=== PATIENT | female | born 1950 | race Caucasian/White ===

== ENCOUNTER 2021-03-19 11:46 | Outpatient (CLI) | payer MEDICARE, BC ==
[2021-03-19 14:35] LABS: #Basophils 0.1 10x3/uL (0.0-0.2); #Eosinphils 0.3 10x3/uL (0.0-0.5); #Monocytes 0.5 10x3/uL (0.0-1.1); #Neutrophils 4.6 10x3/uL (1.5-8.4); %Basophils 1.1 % (0.0-2.0); %Eosinophils 3.7 % (0.0-6.0); %Lymphocytes 24.9 % (18.0-47.0); %Monocytes 6.2 % (0.0-10.0); %Neutrophils 63.8 % (40.0-75.0); Hemoglobin 10.7 g/dL (12.0-15.5); Mean Corpuscular HGB CONC 33.2 g/dL (32.0-36.0); Mean Corpuscular Hemoglobin 29.6 pg (27.0-33.0); Mean Corpuscular Volume 89.2 fl (81.6-98.3); Mean Platelet Volume 10.4 fl (7.4-10.4); Platelet Count 261 10x3/uL (150-450); Red Blood Cell (RBC) Count 3.61 10x6/uL (3.90-5.03); White Blood Cell (WBC) Count 7.3 10x3/uL (3.5-10.5)
[2021-03-19 14:48] LABS: Anion Gap 17 mmol/L (10-20); BUN (Urea Nitrogen) 43 mg/dL (9.8-20.1); Calc. Creatinine Clearance 0 mL/min (70-130); Calcium 9.9 mg/dL (7.8-10.44); Carbon Dioxide 25 mmol/L (23-31); Chloride 102 mmol/L (98-107); Glucose 141 mg/dL (83-110); Potassium 4.8 mmol/L (3.5-5.1); Sodium 139 mmol/L (136-145)
[2021-03-20 01:00] LABS: SARS-CoV-2 PCR by NAA Not Detected (NotDetected)
== END 2021-03-19 11:47 | disposition home or self-care (01) ==
LOC: LABBT 11:46
PROVIDERS: ATTEND Specialist
DX: Z01.818 Encounter for other preprocedural examination (principal); E11.22 Type 2 diabetes mellitus with diabetic chronic kidney disease; I12.9 Hypertensive chronic kidney disease with stage 1 through stage 4 chronic kidney disease, or unspecified chronic kidney disease; N18.9 Chronic kidney disease, unspecified; Z79.4 Long term (current) use of insulin; Z20.822 Contact with and (suspected) exposure to COVID-19
CPT/HCPCS: 80048; 85025; U0003; U0005

== ENCOUNTER 2021-03-24 10:19 | Day surgery (SDC) | payer MEDICARE, BC ==
[2021-03-23 14:30] VITALS: BMI 29.6
[2021-03-24] MEDS ORDERED: Gabapentin 300 MG CAP ONE (10:49)
[2021-03-24] MEDS ORDERED: Levofloxacin 500 mg/D5W 100 ml Premix Bag ONE (10:49)
[2021-03-24] MEDS ORDERED: Ioversol 68 % 50 ML VIAL ONE (12:15)
[2021-03-24] MEDS ORDERED: Heparin 5,000 UNITS/ML VIAL ONE (12:15)
[2021-03-24] MEDS ORDERED: Bupivacaine PF 0.5% 30 ML VIAL ONE (12:15)
[2021-03-24] MEDS ORDERED: Bupivacaine 0.25% HCL 30 ML VIAL ONE ×2 (12:15→12:26)
[2021-03-24] MEDS ORDERED: Protamine Sulfate 50 MG/5 ML VIAL ONE (12:15)
[2021-03-24] MEDS ORDERED: EPINEPHrine 1 MG/ML AMP ONE (12:15)
[2021-03-24] MEDS ORDERED: Heparin 10,000 UNITS/ 10 ML VIAL ONE (12:15)
[2021-03-24] MEDS ORDERED: Fentanyl 100 MCG/2 ML VIAL ONE ×2 (12:24→14:36)
[2021-03-24] MEDS ORDERED: Lidocaine 2% PF 5 ML VIAL ONE (12:26)
[2021-03-24] MEDS ORDERED: Rocuronium Bromide 10 MG/ML (10ML VIAL) ONE (12:51)
[2021-03-24] MEDS ORDERED: Ondansetron PF 4 MG/2 ML Vial ONE (12:51)
[2021-03-24] MEDS ORDERED: ePHEDrine Sulfate 50 MG/10 ML VIAL ONE (12:51)
[2021-03-24] MEDS ORDERED: PROPOFOL 200 MG/20 ML VIAL ONE (12:51)
[2021-03-24] MEDS ORDERED: Glycopyrrolate 0.2 MG/ML 5 ML SYRINGE ONE (12:51)
[2021-03-24] MEDS ORDERED: Lidocaine 1% PF 5 ML VIAL ONE (12:51)
[2021-03-24] MEDS ORDERED: Lidocaine 1% w/Epinephrine 1:100K 20 ML VIAL ONE (12:58)
== END 2021-03-24 16:40 | disposition home or self-care (01) ==
LOC: SDC 10:19
PROVIDERS: ATTEND Specialist
PROC: 0WHG43Z Insertion of Infusion Device into Peritoneal Cavity, Percutaneous Endoscopic Approach (ICD-10-PCS; principal; 2021-03-24)
PROC: 031C0ZF Bypass Left Radial Artery to Lower Arm Vein, Open Approach (ICD-10-PCS; 2021-03-24)
DX: I13.11 Hypertensive heart and chronic kidney disease without heart failure, with stage 5 chronic kidney disease, or end stage renal disease (principal); E11.22 Type 2 diabetes mellitus with diabetic chronic kidney disease; N18.6 End stage renal disease; D63.1 Anemia in chronic kidney disease; B19.20 Unspecified viral hepatitis C without hepatic coma; Z87.891 Personal history of nicotine dependence; Z79.4 Long term (current) use of insulin; Z79.899 Other long term (current) drug therapy; Z88.1 Allergy status to other antibiotic agents
CPT/HCPCS: 36416; J0171; J1644; J1956; J2001; J2405; J2704; J2720; J3010; Q9967; S0020

== ENCOUNTER 2021-04-11 12:45 | Inpatient (IN) | payer MEDICARE, BC ==
[2021-04-11 17:32] VITALS: BMI 30.2
[2021-04-11] MEDS: Promethazine 25 MG TAB PO PRN (20:32)
[2021-04-11 21:17] LABS: SARS-CoV-2 PCR by NAA Not Detected (NotDetected)
[2021-04-11] MEDS ORDERED: Dextrose 50% Abboject 50 ML SYRINGE SLOW IVP PRN (21:21)
[2021-04-11] MEDS ORDERED: Dextrose 5% in Water 1,000 ML IV PRN (21:21)
[2021-04-11] MEDS: HumaLOG 300 UNITS/3 ML VIAL SC PRN (21:45)
[2021-04-11 21:46] LABS: #Lymphocytes 1.7 thou/uL (1.20-3.40); #Monocytes 1.2 thou/uL (0.11-0.59); #Neutrophils 12.7 thou/uL (1.40-6.50); %Basophils 0.3 % (0.0-1.0); %Eosinophils 0.2 % (0.0-10.0); %Lymphocytes 10.7 % (21.0-51.0); %Monocytes 7.5 % (0.0-10.0); %Neutrophils 81.3 % (42.0-75.0); Hemoglobin 9.9 g/dL (12.0-16.0); Mean Corpuscular HGB CONC 34.3 g/dL (32.0-36.0); Mean Corpuscular Hemoglobin 30.9 pg (27.0-31.0); Mean Platelet Volume 7.8 fL (7.4-10.4); Platelet Count 221 thou/uL (130-400); RBC Distribution Width 10.7 % (11.5-14.5); Red Blood Cell (RBC) Count 3.21 mill/uL (4.20-5.40); White Blood Cell (WBC) Count 15.6 thou/uL (4.8-10.8)
[2021-04-11] MEDS ORDERED: traMADol HCl 50 MG TAB PO PRN (21:56)
[2021-04-11 22:02] LABS: INR-International Normal Ratio 1.2; Prothrombin Time 15.4 sec (12.0-14.7)
[2021-04-11 22:03] LABS: PTT 33.7 sec (22.9-36.1)
[2021-04-11 22:05] LABS: Anion Gap 19 mmol/L (10-20); BUN (Urea Nitrogen) 48 mg/dL (9.8-20.1); Calc. Creatinine Clearance 20 mL/min (70-130); Calcium 9.2 mg/dL (7.8-10.44); Carbon Dioxide 18 mmol/L (23-31); Chloride 101 mmol/L (98-107); Glucose 230 mg/dL (83-110); Potassium 3.8 mmol/L (3.5-5.1); Sodium 134 mmol/L (136-145)
[2021-04-12] MEDS: Piperacillin/Tazobactam 2.25 GM in Sodium Chloride 0.9% 100 ML IVPB SCH ×2 (05:47→14:41)
[2021-04-12 06:19] LABS: #Basophils 0.1 thou/uL (0.0-0.2); #Lymphocytes 1.9 thou/uL (1.20-3.40); #Monocytes 1.1 thou/uL (0.11-0.59); #Neutrophils 10.3 thou/uL (1.40-6.50); %Basophils 0.5 % (0.0-1.0); %Eosinophils 0.3 % (0.0-10.0); %Monocytes 8.1 % (0.0-10.0); %Neutrophils 77.1 % (42.0-75.0); Hemoglobin 9.4 g/dL (12.0-16.0); Mean Corpuscular Hemoglobin 29.8 pg (27.0-31.0); Mean Corpuscular Volume 90.5 fL (78.0-98.0); Mean Platelet Volume 8.2 fL (7.4-10.4); Platelet Count 215 thou/uL (130-400); RBC Distribution Width 10.6 % (11.5-14.5); Red Blood Cell (RBC) Count 3.16 mill/uL (4.20-5.40); White Blood Cell (WBC) Count 13.3 thou/uL (4.8-10.8)
[2021-04-12 06:26] LABS: Hemoglobin A1c 6.8 % (4.0-6.0)
[2021-04-12 06:46] LABS: Anion Gap 15 mmol/L (10-20); BUN (Urea Nitrogen) 53 mg/dL (9.8-20.1); Calc. Creatinine Clearance 19 mL/min (70-130); Calcium 9.2 mg/dL (7.8-10.44); Carbon Dioxide 22 mmol/L (23-31); Chloride 102 mmol/L (98-107); Glucose 214 mg/dL (83-110); Potassium 3.5 mmol/L (3.5-5.1); Sodium 135 mmol/L (136-145)
[2021-04-12 09:38] LABS: Vancomycin, Random 11.1 ug/mL (See Comment)
[2021-04-12] MEDS ORDERED: EPOETIN ALFA-EPBX (ESRD) 10,000 UNIT/ML VIAL SC SCH (11:30)
[2021-04-12] MEDS ORDERED: Vancomycin HCl 1 GM in Premix Bag 1 BAG IVPB SCH (15:08)
[2021-04-12] MEDS ORDERED: HYDROcodone/Acetaminophen 5/325 mg Tablet PO PRN (16:03)
[2021-04-12] MEDS: Acetaminophen 325 MG TAB PO PRN (16:24)
[2021-04-12] MEDS ORDERED: Vancomycin HCl 750 MG in Sodium Chloride 0.9% 250 ML 250 ML IVPB SCH (17:00)
[2021-04-12] MEDS: Cefepime 1 GM in Sodium Chloride 0.9% 100 ML IVPB SCH (18:28)
[2021-04-12] MEDS: Carvedilol 6.25 MG TAB PO SCH (20:24)
[2021-04-12] MEDS: MAVYRET PO SCH (20:24)
[2021-04-12] MEDS: Atorvastatin Calcium 10 MG TAB PO SCH (20:24)
[2021-04-12] MEDS: HumaLOG 300 UNITS/3 ML VIAL SC PRN (20:25)
[2021-04-13] MEDS: HumaLOG 300 UNITS/3 ML VIAL SC PRN ×4 (00:03→16:46)
[2021-04-13] MEDS: Acetaminophen 325 MG TAB PO PRN ×2 (00:07→19:57)
[2021-04-13 05:59] LABS: Bacteria/HPF None Seen HPF (None Seen); Bilirubin Negative (Negative); Blood, Urine Negative (Negative); Clarity Clear (Clear); Glucose, Urine (Dipstick) 200 mg/dL (Negative); Ketone, Urine Negative (Negative); Leukocyte Negative Leu/uL (Negative); Nitrite Negative (Negative); Protein, Urine (Dipstick) 100 mg/dL (Neg-Trace); RBC/HPF 0-3 HPF (0-3); Specific Gravity, Urine 1.017 (1.002-1.036); Squamous Epithelial 0-3 HPF (0-3); Urobilinogen Normal mg/dL (Less than 2); WBC/HPF 0-3 HPF (0-3); pH, Urine 5.5 (5.0-9.0)
[2021-04-13 06:18] LABS: #Basophils 0.1 thou/uL (0.0-0.2); #Eosinphils 0.1 thou/uL (0.0-0.7); #Lymphocytes 1.5 thou/uL (1.20-3.40); #Neutrophils 8.8 thou/uL (1.40-6.50); %Basophils 0.5 % (0.0-1.0); %Eosinophils 0.9 % (0.0-10.0); %Monocytes 8.5 % (0.0-10.0); %Neutrophils 77.1 % (42.0-75.0); Hemoglobin 9.1 g/dL (12.0-16.0); Mean Corpuscular HGB CONC 34.6 g/dL (32.0-36.0); Mean Corpuscular Hemoglobin 31.2 pg (27.0-31.0); Mean Corpuscular Volume 90.2 fL (78.0-98.0); Mean Platelet Volume 8.1 fL (7.4-10.4); Platelet Count 206 thou/uL (130-400); RBC Distribution Width 10.6 % (11.5-14.5); White Blood Cell (WBC) Count 11.4 thou/uL (4.8-10.8)
[2021-04-13 06:38] LABS: Anion Gap 13 mmol/L (10-20); BUN (Urea Nitrogen) 57 mg/dL (9.8-20.1); Calc. Creatinine Clearance 18 mL/min (70-130); Calcium 8.9 mg/dL (7.8-10.44); Carbon Dioxide 24 mmol/L (23-31); Chloride 103 mmol/L (98-107); Glucose 256 mg/dL (83-110); Potassium 3.9 mmol/L (3.5-5.1); Sodium 136 mmol/L (136-145)
[2021-04-13] MEDS: Furosemide 40 MG TAB PO SCH (08:05)
[2021-04-13] MEDS: Carvedilol 6.25 MG TAB PO SCH ×2 (08:05→19:57)
[2021-04-13] MEDS: NIFEdipine XL 30 MG TAB PO SCH (08:06)
[2021-04-13] MEDS: Escitalopram Oxalate 10 mg Tablet PO SCH (08:06)
[2021-04-13] MEDS: Cholecalciferol 1,000 UNITS (25 MCG) TAB PO SCH (08:06)
[2021-04-13 16:39] LABS: Vancomycin, Random 14.1 ug/mL (See Comment)
[2021-04-13] MEDS: Cefepime 1 GM in Sodium Chloride 0.9% 100 ML IVPB SCH (16:42)
[2021-04-13] MEDS ORDERED: Lantus 1000 UNITS/10 ML VIAL SC SCH (16:45)
[2021-04-13] MEDS ORDERED: Vancomycin HCl 750 MG in Sodium Chloride 0.9% 250 ML 250 ML IVPB SCH (17:00)
[2021-04-13] MEDS: Atorvastatin Calcium 10 MG TAB PO SCH (19:57)
[2021-04-13] MEDS: MAVYRET PO SCH (19:58)
[2021-04-13] MEDS: Promethazine 25 MG TAB PO PRN (21:20)
[2021-04-14] MEDS: NIFEdipine XL 30 MG TAB PO SCH (08:13)
[2021-04-14] MEDS: Cholecalciferol 1,000 UNITS (25 MCG) TAB PO SCH (08:13)
[2021-04-14] MEDS: Carvedilol 6.25 MG TAB PO SCH ×2 (08:13→21:24)
[2021-04-14] MEDS: Escitalopram Oxalate 10 mg Tablet PO SCH (08:14)
[2021-04-14] MEDS ORDERED: GLECAPREVIR PO SCH (09:00)
[2021-04-14] MEDS ORDERED: PIBRENTASVIR PO SCH (09:00)
[2021-04-14] MEDS: Furosemide 40 MG TAB PO SCH (09:24)
[2021-04-14] MEDS: HumaLOG 300 UNITS/3 ML VIAL SC PRN (11:55)
[2021-04-14] MEDS ORDERED: Bupivacaine 0.25% HCL 30 ML VIAL ONE (15:21)
[2021-04-14] MEDS ORDERED: EPINEPHrine 1 MG/ML AMP ONE (15:21)
[2021-04-14] MEDS ORDERED: Lidocaine 2% PF 5 ML VIAL ONE (15:21)
[2021-04-14] MEDS ORDERED: Fentanyl 100 MCG/2 ML VIAL ONE (15:22)
[2021-04-14] MEDS ORDERED: Propofol 500 MG/50 ML VIAL ONE (15:22)
[2021-04-14] MEDS ORDERED: Ventilator Sedation Protocol 1 EACH FS SCH (17:00)
[2021-04-14] MEDS ORDERED: Promethazine HCl 25 MG/ML VIAL IVPB PRN (17:04)
[2021-04-14] MEDS ORDERED: Promethazine HCl 25 MG/ML VIAL IM PRN (17:04)
[2021-04-14] MEDS ORDERED: Ondansetron HCl/PF 4 MG/2 ML Vial IVP PRN (17:04)
[2021-04-14] MEDS ORDERED: Acetaminophen 500 MG TAB PO PRN (17:25)
[2021-04-14] MEDS: Cefepime 1 GM in Sodium Chloride 0.9% 100 ML IVPB SCH (18:02)
[2021-04-14 18:19] LABS: Vancomycin, Random 16.9 ug/mL (See Comment)
[2021-04-14] MEDS: Atorvastatin Calcium 10 MG TAB PO SCH (21:24)
[2021-04-14] MEDS: MAVYRET PO SCH (21:25)
[2021-04-14] MEDS ORDERED: Vancomycin HCl 500 MG in Sodium Chloride 0.9% 100 ML IVPB SCH (22:30)
[2021-04-14] MEDS: Promethazine 25 MG TAB PO PRN (23:19)
[2021-04-15 07:06] LABS: #Eosinphils 0.4 thou/uL (0.0-0.7); #Lymphocytes 2.2 thou/uL (1.20-3.40); #Monocytes 0.7 thou/uL (0.11-0.59); %Basophils 0.5 % (0.0-1.0); %Eosinophils 4.1 % (0.0-10.0); %Lymphocytes 23.3 % (21.0-51.0); %Monocytes 7.9 % (0.0-10.0); %Neutrophils 64.2 % (42.0-75.0); Hemoglobin 9.3 g/dL (12.0-16.0); Mean Corpuscular HGB CONC 33.3 g/dL (32.0-36.0); Mean Corpuscular Hemoglobin 30.3 pg (27.0-31.0); Mean Corpuscular Volume 90.9 fL (78.0-98.0); Mean Platelet Volume 7.7 fL (7.4-10.4); Platelet Count 311 thou/uL (130-400); RBC Distribution Width 10.7 % (11.5-14.5); Red Blood Cell (RBC) Count 3.08 mill/uL (4.20-5.40); White Blood Cell (WBC) Count 9.3 thou/uL (4.8-10.8)
[2021-04-15 07:30] LABS: Anion Gap 14 mmol/L (10-20); BUN (Urea Nitrogen) 51 mg/dL (9.8-20.1); Calc. Creatinine Clearance 23 mL/min (70-130); Calcium 9.2 mg/dL (7.8-10.44); Carbon Dioxide 23 mmol/L (23-31); Chloride 106 mmol/L (98-107); Glucose 148 mg/dL (83-110); Potassium 3.6 mmol/L (3.5-5.1); Sodium 139 mmol/L (136-145)
[2021-04-15] MEDS: NIFEdipine XL 30 MG TAB PO SCH (11:50)
[2021-04-15] MEDS: Cholecalciferol 1,000 UNITS (25 MCG) TAB PO SCH (11:51)
[2021-04-15] MEDS: Furosemide 40 MG TAB PO SCH (11:51)
[2021-04-15] MEDS: Escitalopram Oxalate 10 mg Tablet PO SCH (11:52)
[2021-04-15] MEDS: Carvedilol 6.25 MG TAB PO SCH ×2 (11:54→22:16)
[2021-04-15] MEDS: Cefepime 1 GM in Sodium Chloride 0.9% 100 ML IVPB SCH (16:36)
[2021-04-15] MEDS ORDERED: Piperacillin/Tazobactam 3.375 GM in Sodium Chloride 0.9% 100 ML IVPB SCH (19:30)
[2021-04-15 21:18] LABS: Vancomycin, Random 15.7 ug/mL (See Comment)
[2021-04-15] MEDS: MAVYRET PO SCH (22:09)
[2021-04-15] MEDS: Promethazine 25 MG TAB PO PRN (22:15)
[2021-04-15] MEDS: Atorvastatin Calcium 10 MG TAB PO SCH (22:16)
[2021-04-15] MEDS ORDERED: Vancomycin HCl 500 MG in Sodium Chloride 0.9% 100 ML IVPB SCH (22:30)
[2021-04-16] MEDS: Carvedilol 6.25 MG TAB PO SCH ×2 (08:11→21:15)
[2021-04-16] MEDS: Escitalopram Oxalate 10 mg Tablet PO SCH (08:12)
[2021-04-16] MEDS: Cholecalciferol 1,000 UNITS (25 MCG) TAB PO SCH (08:12)
[2021-04-16] MEDS: Furosemide 40 MG TAB PO SCH (08:12)
[2021-04-16] MEDS: NIFEdipine XL 30 MG TAB PO SCH (08:13)
[2021-04-16] MEDS: Cefepime 1 GM in Sodium Chloride 0.9% 100 ML IVPB SCH ×2 (17:17→18:41)
[2021-04-16] MEDS: MAVYRET PO SCH (21:16)
[2021-04-16] MEDS: Atorvastatin Calcium 10 MG TAB PO SCH (21:22)
[2021-04-16 21:51] LABS: Vancomycin, Random 18.7 ug/mL (See Comment)
[2021-04-16] MEDS ORDERED: Vancomycin 1 GM in Premix Bag 1 BAG IVPB SCH (23:00)
[2021-04-16] MEDS: Promethazine 25 MG TAB PO PRN (23:30)
[2021-04-17] MEDS ORDERED: Cipro 250 MG TAB PO SCH (06:00)
[2021-04-17 06:06] LABS: Anion Gap 14 mmol/L (10-20); BUN (Urea Nitrogen) 39 mg/dL (9.8-20.1); Calc. Creatinine Clearance 25 mL/min (70-130); Calcium 8.8 mg/dL (7.8-10.44); Carbon Dioxide 22 mmol/L (23-31); Chloride 106 mmol/L (98-107); Glucose 176 mg/dL (83-110); Potassium 3.3 mmol/L (3.5-5.1); Sodium 139 mmol/L (136-145)
[2021-04-17] MEDS: HumaLOG 300 UNITS/3 ML VIAL SC PRN (06:47)
[2021-04-17] MEDS: Carvedilol 6.25 MG TAB PO SCH (08:37)
[2021-04-17] MEDS: Escitalopram Oxalate 10 mg Tablet PO SCH (08:38)
[2021-04-17] MEDS: Furosemide 40 MG TAB PO SCH (08:38)
[2021-04-17] MEDS: NIFEdipine XL 30 MG TAB PO SCH (08:38)
[2021-04-17] MEDS: Cholecalciferol 1,000 UNITS (25 MCG) TAB PO SCH (08:39)
[2021-04-17] MEDS ORDERED: Rifampin 300 MG CAP PO SCH (10:00)
[2021-04-17 11:44] VITALS: BP 136/73; TEMP 98.3
== END 2021-04-17 14:50 | disposition home health service (06) | DRG 907 ==
LOC: T4-B 17:01
PROVIDERS: ADMIT Internal Medicine; ATTEND Internal Medicine
PROC: 3E1M39Z Irrigation of Peritoneal Cavity using Dialysate, Percutaneous Approach (ICD-10-PCS; 2021-04-11)
PROC: 0J980ZZ Drainage of Abdomen Subcutaneous Tissue and Fascia, Open Approach (ICD-10-PCS; principal; 2021-04-14)
PROC: 0WPGX3Z Removal of Infusion Device from Peritoneal Cavity, External Approach (ICD-10-PCS; 2021-04-14)
DX: T85.71XA Infection and inflammatory reaction due to peritoneal dialysis catheter, initial encounter (principal); A41.01 Sepsis due to Methicillin susceptible Staphylococcus aureus; K65.9 Peritonitis, unspecified; N18.6 End stage renal disease; I42.9 Cardiomyopathy, unspecified; I13.2 Hypertensive heart and chronic kidney disease with heart failure and with stage 5 chronic kidney disease, or end stage renal disease; Z16.29 Resistance to other single specified antibiotic; E11.22 Type 2 diabetes mellitus with diabetic chronic kidney disease; I48.91 Unspecified atrial fibrillation; D63.1 Anemia in chronic kidney disease; B18.2 Chronic viral hepatitis C; Z20.822 Contact with and (suspected) exposure to COVID-19; I50.9 Heart failure, unspecified; Y83.8 Other surgical procedures as the cause of abnormal reaction of the patient, or of later complication, without mention of misadventure at the time of the procedure; Z99.2 Dependence on renal dialysis; Z88.8 Allergy status to other drugs, medicaments and biological substances; Z88.1 Allergy status to other antibiotic agents; Z79.4 Long term (current) use of insulin; Z79.899 Other long term (current) drug therapy; Z90.710 Acquired absence of both cervix and uterus; Z90.49 Acquired absence of other specified parts of digestive tract; Z98.890 Other specified postprocedural states; Z87.891 Personal history of nicotine dependence
CPT/HCPCS: 36415; 36416; 70450; 74176; 80048; 80202; 81001; 83036; 83880; 85025; 85610; 85730; 87040; 87070; 87077; 87086; 87186; 87205; 90945; G0257; J0171; J0692; J1815; J2001; J2543; J2704; J3010; J3370; J3490; J7050; Q0169; Q5105; S0020; U0003; U0005

== ENCOUNTER 2021-04-22 21:47 | Emergency (ER) | payer MEDICARE, BC ==
[2021-04-22 23:06] LABS: #Basophils 0.1 thou/uL (0.0-0.2); #Eosinphils 0.4 thou/uL (0.0-0.7); #Lymphocytes 2.7 thou/uL (1.20-3.40); #Monocytes 0.8 thou/uL (0.11-0.59); #Neutrophils 8.5 thou/uL (1.40-6.50); %Basophils 0.7 % (0.0-1.0); %Lymphocytes 21.4 % (21.0-51.0); %Monocytes 6.5 % (0.0-10.0); %Neutrophils 68.3 % (42.0-75.0); Hemoglobin 11.1 g/dL (12.0-16.0); Mean Corpuscular HGB CONC 34.3 g/dL (32.0-36.0); Mean Corpuscular Hemoglobin 31.1 pg (27.0-31.0); Mean Corpuscular Volume 90.6 fL (78.0-98.0); Platelet Count 419 thou/uL (130-400); RBC Distribution Width 11.5 % (11.5-14.5); Red Blood Cell (RBC) Count 3.56 mill/uL (4.20-5.40); White Blood Cell (WBC) Count 12.4 thou/uL (4.8-10.8)
[2021-04-22 23:27] LABS: ALT (SGPT) 10 U/L (8-55); AST (SGOT) 9 U/L (5-34); Albumin 3.9 g/dL (3.4-4.8); Alkaline Phosphatase 100 U/L (40-110); Anion Gap 17 mmol/L (10-20); BUN (Urea Nitrogen) 42 mg/dL (9.8-20.1); Bilirubin, Total 0.3 mg/dL (0.2-1.2); Calc. Creatinine Clearance 0 mL/min (70-130); Carbon Dioxide 24 mmol/L (23-31); Chloride 104 mmol/L (98-107); Globulin 3.9 g/dL (2.4-3.5); Glucose 250 mg/dL (83-110); Lipase 41 U/L (8-78); Protein, Total 7.8 g/dL (5.8-8.1); Sodium 141 mmol/L (136-145)
[2021-04-23] MEDS ORDERED: Ondansetron ODT 8 MG TAB ONE (00:26)
== END 2021-04-23 01:40 | disposition home or self-care (01) ==
LOC: ERS 21:47
DX: R11.2 Nausea with vomiting, unspecified (principal); E10.9 Type 1 diabetes mellitus without complications; Z79.899 Other long term (current) drug therapy
CPT/HCPCS: 36415; 80053; 83690; 85025; 99284; Q0162

== ENCOUNTER 2021-06-02 10:50 | Outpatient (CLI) | payer MEDICARE, BC ==
[2021-06-02 11:51] LABS: #Basophils 0.1 10x3/uL (0.0-0.2); #Eosinphils 0.3 10x3/uL (0.0-0.5); #Monocytes 0.6 10x3/uL (0.0-1.1); #Neutrophils 4.5 10x3/uL (1.5-8.4); %Basophils 0.9 % (0.0-2.0); %Lymphocytes 25.9 % (18.0-47.0); %Neutrophils 60.9 % (40.0-75.0); Hemoglobin 10.3 g/dL (12.0-15.5); Mean Corpuscular Hemoglobin 29.1 pg (27.0-33.0); Mean Platelet Volume 9.8 fl (7.4-10.4); Platelet Count 278 10x3/uL (150-450); RBC Distribution Width 13.5 % (11.5-14.5); Red Blood Cell (RBC) Count 3.54 10x6/uL (3.90-5.03); White Blood Cell (WBC) Count 7.5 10x3/uL (3.5-10.5)
[2021-06-02 12:07] LABS: Anion Gap 15 mmol/L (10-20); BUN (Urea Nitrogen) 28 mg/dL (9.8-20.1); Calc. Creatinine Clearance 0 mL/min (70-130); Calcium 10.1 mg/dL (7.8-10.44); Carbon Dioxide 24 mmol/L (23-31); Chloride 108 mmol/L (98-107); Glucose 141 mg/dL (83-110); Potassium 4.2 mmol/L (3.5-5.1); Sodium 143 mmol/L (136-145)
[2021-06-02 18:43] LABS: SARS-CoV-2 PCR by NAA Not Detected (NotDetected)
== END 2021-06-02 10:51 | disposition home or self-care (01) ==
LOC: LABBT 10:50
PROVIDERS: ATTEND Specialist
DX: Z01.818 Encounter for other preprocedural examination (principal); I12.9 Hypertensive chronic kidney disease with stage 1 through stage 4 chronic kidney disease, or unspecified chronic kidney disease; E11.22 Type 2 diabetes mellitus with diabetic chronic kidney disease; N18.9 Chronic kidney disease, unspecified; B19.20 Unspecified viral hepatitis C without hepatic coma; Z79.4 Long term (current) use of insulin; Z20.822 Contact with and (suspected) exposure to COVID-19
CPT/HCPCS: 71046; 80048; 85025; 93005; U0003; U0005; 93010

== ENCOUNTER 2021-06-07 07:22 | Day surgery (SDC) | payer MEDICARE, BC ==
[2021-06-04 16:08] VITALS: BMI 29.2
[2021-06-07] MEDS ORDERED: EPINEPHrine 1 MG/ML AMP ONE (08:17)
[2021-06-07] MEDS ORDERED: Bupivacaine PF 0.5% 30 ML VIAL ONE (08:17)
[2021-06-07] MEDS ORDERED: Heparin 10,000 UNITS/ 10 ML VIAL ONE (08:17)
[2021-06-07] MEDS ORDERED: SUGAMMADEX SODIUM 200 MG/2 ML VIAL ONE (08:53)
[2021-06-07] MEDS ORDERED: Fentanyl 100 MCG/2 ML VIAL ONE (08:53)
[2021-06-07] MEDS ORDERED: Scopolamine 1.5 mg/72 hour Patch ONE (08:53)
[2021-06-07] MEDS ORDERED: Ondansetron PF 4 MG/2 ML Vial ONE (09:30)
[2021-06-07] MEDS ORDERED: PROPOFOL 200 MG/20 ML VIAL ONE (09:30)
[2021-06-07] MEDS ORDERED: Metoprolol Tartrate 5 MG/5 ML VIAL ONE (09:30)
[2021-06-07] MEDS ORDERED: Lidocaine 1% PF 5 ML VIAL ONE (09:30)
[2021-06-07] MEDS ORDERED: PHENYLEPHRINE-NS 100 MCG/ML 10 ML SYRINGE ONE (09:30)
[2021-06-07] MEDS ORDERED: Rocuronium Bromide 10 MG/ML (10ML VIAL) ONE (09:30)
== END 2021-06-07 11:49 | disposition home or self-care (01) ==
LOC: SDC 07:22
PROVIDERS: ATTEND Specialist
PROC: 0WHG43Z Insertion of Infusion Device into Peritoneal Cavity, Percutaneous Endoscopic Approach (ICD-10-PCS; principal; 2021-06-07)
DX: I13.11 Hypertensive heart and chronic kidney disease without heart failure, with stage 5 chronic kidney disease, or end stage renal disease (principal); E11.22 Type 2 diabetes mellitus with diabetic chronic kidney disease; N18.6 End stage renal disease; D63.1 Anemia in chronic kidney disease; B19.20 Unspecified viral hepatitis C without hepatic coma; Z87.891 Personal history of nicotine dependence; Z79.4 Long term (current) use of insulin; Z79.899 Other long term (current) drug therapy; Z88.1 Allergy status to other antibiotic agents; Z99.2 Dependence on renal dialysis
CPT/HCPCS: 36416; J0171; J0690; J1644; J2405; J2704; J3010; S0020

== ENCOUNTER 2022-02-28 14:12 | Outpatient (CLI) | payer MEDICARE, BC ==
[2022-03-01 00:05] LABS: SARS-CoV-2 PCR by NAA Not Detected (NotDetected)
== END 2022-02-28 14:13 | disposition home or self-care (01) ==
LOC: LABBT 14:12
PROVIDERS: ATTEND Ophthalmology Retina Specialist
DX: Z20.822 Contact with and (suspected) exposure to COVID-19 (principal)
CPT/HCPCS: U0003; U0005

== ENCOUNTER 2022-03-03 08:11 | Day surgery (SDC) | payer MEDICARE, BC ==
[2022-03-01 14:47] VITALS: BMI 32.1
[~2022-03-03 08:11] MED LIST: EPINEPHrine 0.3 MG, Dextrose 50% 3 ML in Ophthalmic Irrigation Solution 500 ML IRR SCH
[2022-03-03] MEDS ORDERED: Cyclopentolate 1% Opth Drop 2 ML BOT ONE (08:38)
[2022-03-03] MEDS ORDERED: Phenylephrine 2.5% Ophth Soln 5 ML BOT ONE (08:38)
[2022-03-03 09:54] LABS: Anion Gap 12 mmol/L (10-20); BUN (Urea Nitrogen) 26 mg/dL (9.8-20.1); Calc. Creatinine Clearance 22 mL/min (70-130); Calcium 9.5 mg/dL (7.8-10.44); Carbon Dioxide 29 mmol/L (23-31); Chloride 104 mmol/L (98-107); Glucose 84 mg/dL (83-110); Potassium 4.1 mmol/L (3.5-5.1); Sodium 141 mmol/L (136-145)
[2022-03-03] MEDS ORDERED: Lidocaine 1% PF 5 ML VIAL ONE ×2 (10:01)
[2022-03-03] MEDS ORDERED: Triamcinolone 40 MG/ML VIAL ONE (10:01)
[2022-03-03] MEDS ORDERED: PROPOFOL 200 MG/20 ML VIAL ONE (10:01)
[2022-03-03] MEDS ORDERED: CEFAZOLIN 1 GM VIAL ONE (10:01)
[2022-03-03] MEDS ORDERED: Bupivacaine 0.75% 10 ML VIAL ONE (10:01)
[2022-03-03] MEDS ORDERED: Maxitrol 0.1% Opth Oint 3.5 GM TUBE ONE (10:01)
[2022-03-03] MEDS ORDERED: Lidocaine 4% PF 5 ML AMP ONE (10:01)
[2022-03-03] MEDS ORDERED: Midazolam HCl 2 mg/2 ml Vial ONE (10:37)
[2022-03-03] MEDS ORDERED: Fentanyl 100 MCG/2 ML VIAL ONE (10:37)
== END 2022-03-03 11:09 | disposition home or self-care (01) ==
LOC: SDC 08:11
PROVIDERS: ATTEND Ophthalmology Retina Specialist
PROC: 08T53ZZ Resection of Left Vitreous, Percutaneous Approach (ICD-10-PCS; principal; 2022-03-03)
PROC: 08QF3ZZ Repair Left Retina, Percutaneous Approach (ICD-10-PCS; 2022-03-03)
PROC: 08NF3ZZ Release Left Retina, Percutaneous Approach (ICD-10-PCS; 2022-03-03)
DX: H43.312 Vitreous membranes and strands, left eye (principal); H35.372 Puckering of macula, left eye; E11.9 Type 2 diabetes mellitus without complications; Z79.4 Long term (current) use of insulin; Z79.899 Other long term (current) drug therapy; Z88.1 Allergy status to other antibiotic agents
CPT/HCPCS: 36416; 80048; J0171; J0690; J2250; J2704; J3010; J3301; J3490

== ENCOUNTER 2023-02-14 17:48 | Inpatient (IN) | payer MEDICARE, BC ==
[2023-02-14] MEDS ORDERED: Acetaminophen 500 MG TAB ONE (18:41)
[2023-02-14] MEDS ORDERED: Piperacillin/Tazobactam 3.375 GM VIAL ONE (18:43)
[2023-02-14 18:56] LABS: #Monocytes 0.8 thou/uL (0.11-0.59); #Neutrophils 11.1 thou/uL (1.40-6.50); %Basophils 0.3 % (0.0-1.0); %Eosinophils 0.1 % (0.0-10.0); %Lymphocytes 7.8 % (21.0-51.0); %Monocytes 5.9 % (0.0-10.0); %Neutrophils 85.8 % (42.0-75.0); Hemoglobin 11.4 g/dL (12.0-16.0); Mean Corpuscular Hemoglobin 32.7 pg (27.0-31.0); Mean Corpuscular Volume 93.5 fl (78.0-98.0); Mean Platelet Volume 7.6 fL (7.4-10.4); Platelet Count 195 10x3/uL (130-400); RBC Distribution Width 11.6 % (11.5-14.5); Red Blood Cell (RBC) Count 3.49 mill/uL (4.20-5.40); White Blood Cell (WBC) Count 12.9 10x3/uL (4.8-10.8)
[2023-02-14] MEDS ORDERED: Vancomycin 1 GM/200 ML (FROZEN) BAG ONE (19:13)
[2023-02-14 19:20] LABS: ALT (SGPT) 13 U/L (8-55); AST (SGOT) 16 U/L (5-34); Albumin 3.8 g/dL (3.4-4.8); Alkaline Phosphatase 72 U/L (40-110); Anion Gap 17 mmol/L (10-20); BUN (Urea Nitrogen) 28 mg/dL (9.8-20.1); Bilirubin, Total 0.4 mg/dL (0.2-1.2); Calc. Creatinine Clearance 0 mL/min (70-130); Calcium 9.1 mg/dL (7.8-10.44); Carbon Dioxide 29 mmol/L (23-31); Chloride 95 mmol/L (98-107); Estimated GFR 13; Globulin 2.9 g/dL (2.4-3.5); Glucose 304 mg/dL (83-110); Potassium 3.8 mmol/L (3.5-5.1); Protein, Total 6.7 g/dL (5.8-8.1); Sodium 137 mmol/L (136-145)
[2023-02-14] MEDS ORDERED: Acetaminophen 325 MG TAB PO PRN (20:13)
[2023-02-14 20:14] LABS: SARS-CoV-2 NAA Rapid Test Not Detected (NotDetected)
[2023-02-14] MEDS ORDERED: HumaLOG 300 UNITS/3 ML VIAL SC PRN (20:18)
[2023-02-14] MEDS ORDERED: Dextrose 5% in Water 1,000 ML IV PRN (20:18)
[2023-02-14] MEDS ORDERED: Dextrose 50% Abboject 50 ML SYRINGE SLOW IVP PRN (20:18)
[2023-02-14 22:20] LABS: Lactic Acid 2.8 mmol/L (0.5-2.2)
[2023-02-14] MEDS ORDERED: HumaLOG 300 UNITS/3 ML VIAL ONE (23:23)
[2023-02-14 23:32] LABS: HBSAg Index 0.26 S/CO (0-0.99); Hep B Surf Ag Non-Reactive S/CO (NonReactive)
[2023-02-14 23:33] LABS: Hep B Surf AB Reactive (NonReactive)
[2023-02-15] MEDS: Insulin Glargine 30 UNITS/0.3 ML VIAL SC SCH ×3 (00:20→20:41)
[2023-02-15 01:41] LABS: Lactic Acid 2.3 mmol/L (0.5-2.2)
[2023-02-15] MEDS ORDERED: Vancomycin Dose by Levels Sliding Scale (Wt 71-99) FS SCH (01:45)
[2023-02-15] MEDS ORDERED: Vancomycin HCl 750 MG in Sodium Chloride 0.9% 250 ML 250 ML IVPB SCH (02:00)
[2023-02-15] MEDS ORDERED: Piperacillin/Tazobactam 3.375 GM VIAL ONE (04:07)
[2023-02-15] MEDS: Piperacillin/Tazobactam 3.375 GM in Sodium Chloride 0.9% 100 ML IVPB SCH ×2 (04:13→14:24)
[2023-02-15 07:26] LABS: #Eosinphils 0.1 thou/uL (0.0-0.7); #Lymphocytes 1.1 thou/uL (1.20-3.40); #Monocytes 0.7 thou/uL (0.11-0.59); %Basophils 0.4 % (0.0-1.0); %Eosinophils 1.7 % (0.0-10.0); %Lymphocytes 12.7 % (21.0-51.0); %Monocytes 7.5 % (0.0-10.0); %Neutrophils 77.8 % (42.0-75.0); Hemoglobin 10.4 g/dL (12.0-16.0); Mean Corpuscular HGB CONC 35.4 g/dL (32.0-36.0); Mean Corpuscular Hemoglobin 32.7 pg (27.0-31.0); Mean Corpuscular Volume 92.4 fl (78.0-98.0); Mean Platelet Volume 7.4 fL (7.4-10.4); Platelet Count 173 10x3/uL (130-400); RBC Distribution Width 11.5 % (11.5-14.5); Red Blood Cell (RBC) Count 3.17 mill/uL (4.20-5.40); White Blood Cell (WBC) Count 8.9 10x3/uL (4.8-10.8)
[2023-02-15 07:48] LABS: Anion Gap 17 mmol/L (10-20); BUN (Urea Nitrogen) 26 mg/dL (9.8-20.1); Calc. Creatinine Clearance 0 mL/min (70-130); Calcium 8.5 mg/dL (7.8-10.44); Carbon Dioxide 28 mmol/L (23-31); Chloride 98 mmol/L (98-107); Estimated GFR 13; Glucose 271 mg/dL (83-110); Potassium 3.5 mmol/L (3.5-5.1); Sodium 139 mmol/L (136-145)
[2023-02-15 12:46] VITALS: BMI 33.8
[2023-02-15] MEDS: Ondansetron PF 4 MG/2 ML Vial IVP PRN (17:00)
[2023-02-15] MEDS: Carvedilol 3.125 MG TAB PO SCH (17:46)
[2023-02-15] MEDS: Amoxicillin/Potassium Clav 250 MG TAB PO SCH (20:41)
[2023-02-15 21:05] LABS: Bacteria/HPF None Seen HPF (None Seen); Bilirubin Negative (Negative); Blood, Urine 1+ (Negative); CAUTI Indications for Culture Fever or rigors; Clarity Turbid (Clear); Glucose, Urine (Dipstick) 50 mg/dL (Negative); Ketone, Urine Negative (Negative); Leukocyte 500 Leu/uL (Negative); Nitrite Negative (Negative); Protein, Urine (Dipstick) 50 mg/dL (Neg-Trace); Specific Gravity, Urine 1.015 (1.002-1.036); Squamous Epithelial 0-3 HPF (0-3); Urobilinogen Normal mg/dL (Less than 2); WBC/HPF Greater than 50 HPF (0-3); pH, Urine 7.5 (5.0-9.0)
[2023-02-15 21:06] LABS: Urine Culture Reflex Yes Yes
[2023-02-16] MEDS: Ondansetron PF 4 MG/2 ML Vial IVP PRN (05:24)
[2023-02-16] MEDS: HumaLOG 300 UNITS/3 ML VIAL SC PRN ×3 (05:35→17:04)
[2023-02-16 07:10] LABS: #Eosinphils 0.3 thou/uL (0.0-0.7); #Lymphocytes 1.4 thou/uL (1.20-3.40); #Monocytes 0.6 thou/uL (0.11-0.59); #Neutrophils 6.4 thou/uL (1.40-6.50); %Basophils 0.4 % (0.0-1.0); %Eosinophils 3.4 % (0.0-10.0); %Monocytes 6.6 % (0.0-10.0); %Neutrophils 73.7 % (42.0-75.0); Hemoglobin 9.8 g/dL (12.0-16.0); Mean Corpuscular HGB CONC 34.1 g/dL (32.0-36.0); Mean Corpuscular Hemoglobin 32.5 pg (27.0-31.0); Mean Corpuscular Volume 95.4 fl (78.0-98.0); Mean Platelet Volume 7.5 fL (7.4-10.4); Platelet Count 178 10x3/uL (130-400); RBC Distribution Width 11.4 % (11.5-14.5); Red Blood Cell (RBC) Count 3.01 mill/uL (4.20-5.40); White Blood Cell (WBC) Count 8.7 10x3/uL (4.8-10.8)
[2023-02-16 07:28] LABS: Anion Gap 17 mmol/L (10-20); BUN (Urea Nitrogen) 26 mg/dL (9.8-20.1); Calc. Creatinine Clearance 17 mL/min (70-130); Calcium 8.4 mg/dL (7.8-10.44); Carbon Dioxide 26 mmol/L (23-31); Chloride 100 mmol/L (98-107); Estimated GFR 12; Glucose 237 mg/dL (83-110); Sodium 140 mmol/L (136-145)
[2023-02-16] MEDS: Insulin Glargine 30 UNITS/0.3 ML VIAL SC SCH ×2 (08:30→21:11)
[2023-02-16] MEDS: Amoxicillin/Potassium Clav 250 MG TAB PO SCH (08:30)
[2023-02-16] MEDS: Carvedilol 3.125 MG TAB PO SCH ×2 (08:30→17:02)
[2023-02-16] MEDS ORDERED: Potassium Chloride 20 MEQ TAB PO SCH ×2 (11:00→14:00)
[2023-02-17] MEDS: HumaLOG 300 UNITS/3 ML VIAL SC PRN (06:13)
[2023-02-17 06:30] LABS: #Eosinphils 0.5 thou/uL (0.0-0.7); #Lymphocytes 1.9 thou/uL (1.20-3.40); #Monocytes 0.6 thou/uL (0.11-0.59); #Neutrophils 5.3 thou/uL (1.40-6.50); %Basophils 0.5 % (0.0-1.0); %Eosinophils 5.7 % (0.0-10.0); %Lymphocytes 22.5 % (21.0-51.0); %Monocytes 7.4 % (0.0-10.0); %Neutrophils 63.9 % (42.0-75.0); Mean Corpuscular HGB CONC 33.6 g/dL (32.0-36.0); Mean Corpuscular Hemoglobin 32.3 pg (27.0-31.0); Mean Corpuscular Volume 96.2 fl (78.0-98.0); Mean Platelet Volume 7.7 fL (7.4-10.4); Platelet Count 192 10x3/uL (130-400); RBC Distribution Width 11.6 % (11.5-14.5); Red Blood Cell (RBC) Count 3.09 mill/uL (4.20-5.40); White Blood Cell (WBC) Count 8.3 10x3/uL (4.8-10.8)
[2023-02-17 06:46] LABS: Anion Gap 15 mmol/L (10-20); BUN (Urea Nitrogen) 20 mg/dL (9.8-20.1); Calc. Creatinine Clearance 18 mL/min (70-130); Calcium 8.4 mg/dL (7.8-10.44); Carbon Dioxide 26 mmol/L (23-31); Chloride 105 mmol/L (98-107); Estimated GFR 13; Glucose 145 mg/dL (83-110); Potassium 3.5 mmol/L (3.5-5.1); Sodium 142 mmol/L (136-145)
[2023-02-17] MEDS: Carvedilol 3.125 MG TAB PO SCH (09:55)
[2023-02-17] MEDS: Insulin Glargine 30 UNITS/0.3 ML VIAL SC SCH (09:56)
[2023-02-17] MEDS ORDERED: Potassium Chloride 20 MEQ TAB PO SCH (10:00)
[2023-02-17 13:25] VITALS: BP 145/66; TEMP 98.3
== END 2023-02-17 15:20 | disposition home or self-care (01) | DRG 871 ==
LOC: ERS 17:48 → ERHOLD 20:01 → SURG B 02-15 12:25
PROVIDERS: ADMIT Internal Medicine; ATTEND Internal Medicine
PROC: 3E03329 Introduction of Other Anti-infective into Peripheral Vein, Percutaneous Approach (ICD-10-PCS; principal; 2023-02-14)
PROC: 3E1M39Z Irrigation of Peritoneal Cavity using Dialysate, Percutaneous Approach (ICD-10-PCS; 2023-02-16)
DX: A41.9 Sepsis, unspecified organism (principal); J18.9 Pneumonia, unspecified organism; N18.6 End stage renal disease; J69.0 Pneumonitis due to inhalation of food and vomit; E87.20 Acidosis, unspecified; K52.1 Toxic gastroenteritis and colitis; R65.20 Severe sepsis without septic shock; E78.5 Hyperlipidemia, unspecified; I10 Essential (primary) hypertension; E11.22 Type 2 diabetes mellitus with diabetic chronic kidney disease; Z20.822 Contact with and (suspected) exposure to COVID-19; E11.65 Type 2 diabetes mellitus with hyperglycemia; D63.1 Anemia in chronic kidney disease; E87.6 Hypokalemia; T36.1X5A Adverse effect of cephalosporins and other beta-lactam antibiotics, initial encounter; Z99.2 Dependence on renal dialysis; Z98.890 Other specified postprocedural states; Z90.710 Acquired absence of both cervix and uterus; Z90.49 Acquired absence of other specified parts of digestive tract; Z88.8 Allergy status to other drugs, medicaments and biological substances; Z88.1 Allergy status to other antibiotic agents; Z79.84 Long term (current) use of oral hypoglycemic drugs; Z87.891 Personal history of nicotine dependence
CPT/HCPCS: 36415; 36416; 71045; 80048; 80053; 81001; 83605; 83880; 84484; 85025; 86706; 87040; 87086; 87340; 90945; 94760; 96365; 96367; G0257; J1815; J2405; J2543; J3370; J3370-JW; J3490; J7050

== ENCOUNTER 2023-04-26 15:15 | Inpatient (IN) | payer MEDICARE, BC ==
[~2023-04-26 15:15] MED LIST changes: -EPINEPHrine 0.3 MG, Dextrose 50% 3 ML in Ophthalmic Irrigation Solution 500 ML IRR SCH; +Iopamidol-370 76% 500 ML MDV (1 ML CHARGE) ONE
[2023-04-26] MEDS ORDERED: Ondansetron PF 4 MG/2 ML Vial ONE (16:09)
[2023-04-26 16:11] LABS: #Eosinphils 0.1 thou/uL (0.0-0.7); #Monocytes 0.7 thou/uL (0.11-0.59); #Neutrophils 9.1 thou/uL (1.40-6.50); %Basophils 0.4 % (0.0-1.0); %Eosinophils 0.8 % (0.0-10.0); %Lymphocytes 7.3 % (21.0-51.0); %Monocytes 6.8 % (0.0-10.0); %Neutrophils 84.3 % (42.0-75.0); Hemoglobin 11.8 g/dL (12.0-16.0); Mean Corpuscular HGB CONC 33.1 g/dL (32.0-36.0); Mean Corpuscular Hemoglobin 31.6 pg (27.0-31.0); Mean Corpuscular Volume 95.4 fl (78.0-98.0); Mean Platelet Volume 9.9 fL (7.4-10.4); Platelet Count 192 10x3/uL (130-400); RBC Distribution Width 12.2 % (11.5-14.5); Red Blood Cell (RBC) Count 3.73 mill/uL (4.20-5.40); White Blood Cell (WBC) Count 10.8 10x3/uL (4.8-10.8)
[2023-04-26 16:24] LABS: PTT 27.5 sec (22.9-36.1); Prothrombin Time 13.8 sec (12.0-14.7)
[2023-04-26] MEDS ORDERED: fentaNYL 50 mcg/mL 1 mL Vial ONE (16:31)
[2023-04-26 16:42] LABS: ALT (SGPT) 16 U/L (8-55); AST (SGOT) 15 U/L (5-34); Albumin 3.9 g/dL (3.4-4.8); Alkaline Phosphatase 81 U/L (40-110); Anion Gap 17 mmol/L (10-20); BUN (Urea Nitrogen) 23 mg/dL (9.8-20.1); Bilirubin, Total 0.4 mg/dL (0.2-1.2); Calc. Creatinine Clearance 0 mL/min (70-130); Calcium 9.5 mg/dL (7.8-10.44); Carbon Dioxide 27 mmol/L (23-31); Chloride 102 mmol/L (98-107); Estimated GFR 17; Globulin 3.1 g/dL (2.4-3.5); Glucose 143 mg/dL (83-110); Potassium 4.1 mmol/L (3.5-5.1); Sodium 142 mmol/L (136-145)
[2023-04-26] MEDS ORDERED: Vancomycin 1 GM/200 ML (FROZEN) BAG ONE (17:18)
[2023-04-26] MEDS ORDERED: LevoFLOXacin 500 mg/D5W 100 ML BAG ONE (18:06)
[2023-04-26] MEDS ORDERED: metroNIDAZOLE 500 MG/100 ML BAG ONE (18:54)
[2023-04-26] MEDS ORDERED: Lactated Ringer's 1,000 ML IV SCH ×2 (20:15→22:00)
[2023-04-26 20:25] LABS: Lactic Acid 2.5 mmol/L (0.5-2.2)
[2023-04-26 21:56] LABS: Bacteria/HPF None Seen HPF (None Seen); Bilirubin Negative (Negative); Blood, Urine 3+ (Negative); Clarity Extra Turbid (Clear); Glucose, Urine (Dipstick) 300 mg/dL (Negative); Ketone, Urine Negative (Negative); Leukocyte 500 Leu/uL (Negative); Nitrite Negative (Negative); Protein, Urine (Dipstick) 100 mg/dL (Neg-Trace); RBC/HPF 21-50 HPF (0-3); Specific Gravity, Urine 1.013 (1.002-1.036); Squamous Epithelial None Seen HPF (0-3); Urobilinogen Normal mg/dL (Less than 2)
[2023-04-26 22:11] VITALS: BMI 35.0
[2023-04-26] MEDS ORDERED: Vancomycin Dose by Levels Sliding Scale (Wt 71-99) FS SCH (22:15)
[2023-04-26] MEDS ORDERED: Glucagon 1 MG/ML KIT IM PRN (22:16)
[2023-04-26] MEDS ORDERED: Dextrose 50% Abboject 50 ML SYRINGE SLOW IVP PRN (22:16)
[2023-04-26] MEDS ORDERED: Dextrose 5% in Water 1,000 ML IV PRN (22:16)
[2023-04-26] MEDS: Heparin 5,000 UNITS/ML VIAL SC SCH (22:21)
[2023-04-26] MEDS: guaiFENesin ER 600 MG TAB PO SCH (22:21)
[2023-04-26] MEDS: Cefepime 1 GM in Sodium Chloride 0.9% 100 ML IVPB SCH (22:21)
[2023-04-27] MEDS: HumaLOG 300 UNITS/3 ML VIAL SC PRN ×2 (05:32→12:31)
[2023-04-27] MEDS: Levothyroxine Sodium 75 MCG TAB PO SCH (05:32)
[2023-04-27 07:11] LABS: #Monocytes 0.8 thou/uL (0.11-0.59); #Neutrophils 7.7 thou/uL (1.40-6.50); %Basophils 0.3 % (0.0-1.0); %Eosinophils 0.2 % (0.0-10.0); %Lymphocytes 13.6 % (21.0-51.0); %Monocytes 8.3 % (0.0-10.0); %Neutrophils 77.3 % (42.0-75.0); Hemoglobin 9.5 g/dL (12.0-16.0); Mean Corpuscular Hemoglobin 31.1 pg (27.0-31.0); Mean Corpuscular Volume 97.4 fl (78.0-98.0); Mean Platelet Volume 10.5 fL (7.4-10.4); Platelet Count 166 10x3/uL (130-400); RBC Distribution Width 12.2 % (11.5-14.5); Red Blood Cell (RBC) Count 3.05 mill/uL (4.20-5.40)
[2023-04-27 07:45] LABS: ALT (SGPT) 11 U/L (8-55); AST (SGOT) 11 U/L (5-34); Albumin 3.1 g/dL (3.4-4.8); Alkaline Phosphatase 58 U/L (40-110); Anion Gap 14 mmol/L (10-20); BUN (Urea Nitrogen) 26 mg/dL (9.8-20.1); Bilirubin, Total 0.4 mg/dL (0.2-1.2); Calc. Creatinine Clearance 22 mL/min (70-130); Calcium 8.4 mg/dL (7.8-10.44); Carbon Dioxide 26 mmol/L (23-31); Chloride 101 mmol/L (98-107); Estimated GFR 16; Globulin 2.5 g/dL (2.4-3.5); Glucose 341 mg/dL (83-110); Potassium 4.1 mmol/L (3.5-5.1); Protein, Total 5.6 g/dL (5.8-8.1); Sodium 137 mmol/L (136-145)
[2023-04-27] MEDS: guaiFENesin ER 600 MG TAB PO SCH ×2 (08:12→20:32)
[2023-04-27] MEDS: Carvedilol 3.125 MG TAB PO SCH (08:12)
[2023-04-27] MEDS: Insulin Glargine 30 UNITS/0.3 ML VIAL SC SCH ×2 (08:13→20:32)
[2023-04-27] MEDS: Heparin 5,000 UNITS/ML VIAL SC SCH ×3 (08:13→20:32)
[2023-04-27] MEDS ORDERED: Vancomycin HCl 750 MG in Sodium Chloride 0.9% 250 ML 250 ML IVPB SCH (10:30)
[2023-04-27] MEDS ORDERED: fentaNYL 50 mcg/mL 1 mL Vial SLOW IVP PRN (12:12)
[2023-04-27] MEDS: Fluconazole 100 MG TAB PO SCH (12:31)
[2023-04-27] MEDS: Acetaminophen 500 MG TAB PO SCH ×2 (12:31→20:31)
[2023-04-27] MEDS: Benzonatate 100 MG CAP PO PRN (12:31)
[2023-04-27 13:55] LABS: SARS-CoV-2 NAA Rapid Test Not Detected (NotDetected)
[2023-04-27] MEDS ORDERED: Calcium Carbonate 500 MG ChewTAB PO SCH (18:30)
[2023-04-27] MEDS: Atorvastatin Calcium 10 MG TAB PO SCH (20:32)
[2023-04-27] MEDS: Escitalopram Oxalate 10 mg Tablet PO SCH (20:32)
[2023-04-27] MEDS: HumaLOG 300 UNITS/3 ML VIAL SC SCH (20:34)
[2023-04-27] MEDS: Cefepime 1 GM in Sodium Chloride 0.9% 100 ML IVPB SCH (22:06)
[2023-04-27] MEDS ORDERED: HYDROcodone/Acetaminophen 5/325 mg Tablet PO PRN (22:23)
[2023-04-27] MEDS ORDERED: HYDROcodone/Acetaminophen 5/325 mg Tablet PO SCH (22:30)
[2023-04-28] MEDS: HumaLOG 300 UNITS/3 ML VIAL SC PRN ×3 (00:21→21:25)
[2023-04-28 03:27] LABS: RBC Count-Automated (BF) 0 /cu.mm; WBC/Nucleated-Auto (BF) 487 /cu.mm
[2023-04-28 03:29] LABS: BF Color Colorless; Body Fluid Source Peritoneal Fluid; Clarity Clear (Clear); Tube # 1
[2023-04-28 04:06] LABS: BF Segmented Neutrophils 67 %; Cell Count Non Hematic 20 %; Eosinophils 1 %; Lymphocytes 12 %
[2023-04-28] MEDS: Levothyroxine Sodium 75 MCG TAB PO SCH (05:26)
[2023-04-28 06:57] LABS: #Eosinphils 0.3 thou/uL (0.0-0.7); #Monocytes 0.5 thou/uL (0.11-0.59); #Neutrophils 4.1 thou/uL (1.40-6.50); %Basophils 0.6 % (0.0-1.0); %Eosinophils 4.2 % (0.0-10.0); %Lymphocytes 23.7 % (21.0-51.0); %Neutrophils 63.2 % (42.0-75.0); Hemoglobin 9.7 g/dL (12.0-16.0); Mean Corpuscular HGB CONC 32.6 g/dL (32.0-36.0); Mean Corpuscular Hemoglobin 31.5 pg (27.0-31.0); Mean Corpuscular Volume 96.8 fl (78.0-98.0); Mean Platelet Volume 10.5 fL (7.4-10.4); Platelet Count 144 10x3/uL (130-400); RBC Distribution Width 12.2 % (11.5-14.5); Red Blood Cell (RBC) Count 3.08 mill/uL (4.20-5.40); White Blood Cell (WBC) Count 6.5 10x3/uL (4.8-10.8)
[2023-04-28 07:12] LABS: ALT (SGPT) 11 U/L (8-55); AST (SGOT) 12 U/L (5-34); Albumin 3.1 g/dL (3.4-4.8); Alkaline Phosphatase 62 U/L (40-110); Anion Gap 15 mmol/L (10-20); BUN (Urea Nitrogen) 25 mg/dL (9.8-20.1); Bilirubin, Total 0.2 mg/dL (0.2-1.2); Calc. Creatinine Clearance 21 mL/min (70-130); Calcium 8.7 mg/dL (7.8-10.44); Carbon Dioxide 26 mmol/L (23-31); Chloride 99 mmol/L (98-107); Estimated GFR 15; Globulin 2.6 g/dL (2.4-3.5); Glucose 333 mg/dL (83-110); Potassium 3.5 mmol/L (3.5-5.1); Protein, Total 5.7 g/dL (5.8-8.1); Sodium 136 mmol/L (136-145)
[2023-04-28] MEDS: Insulin Glargine 30 UNITS/0.3 ML VIAL SC SCH ×2 (08:55→21:24)
[2023-04-28] MEDS: guaiFENesin ER 600 MG TAB PO SCH ×2 (08:56→21:27)
[2023-04-28] MEDS: Benzonatate 100 MG CAP PO PRN (08:56)
[2023-04-28] MEDS: Fluconazole 100 MG TAB PO SCH (08:56)
[2023-04-28] MEDS: Acetaminophen 500 MG TAB PO SCH ×3 (08:56→21:27)
[2023-04-28] MEDS: Carvedilol 3.125 MG TAB PO SCH (08:56)
[2023-04-28] MEDS: Heparin 5,000 UNITS/ML VIAL SC SCH ×3 (08:56→21:26)
[2023-04-28] MEDS ORDERED: DEX FS SCH (12:15)
[2023-04-28] MEDS ORDERED: HEPARIN FS SCH ×2 (12:15)
[2023-04-28] MEDS ORDERED: PERITON DIALYSIS FS SCH (12:15)
[2023-04-28] MEDS ORDERED: PERIT DIALYSIS NO 6 FS SCH (12:15)
[2023-04-28] MEDS ORDERED: Heparin 1,000 UNITS/ML VIAL ONE (15:00)
[2023-04-28] MEDS ORDERED: Heparin 5,000 UNITS/ML VIAL ONE (15:00)
[2023-04-28] MEDS: Escitalopram Oxalate 10 mg Tablet PO SCH (21:27)
[2023-04-28] MEDS: Atorvastatin Calcium 10 MG TAB PO SCH (21:27)
[2023-04-28] MEDS: HumaLOG 300 UNITS/3 ML VIAL SC SCH (21:33)
[2023-04-28] MEDS: Cefepime 1 GM in Sodium Chloride 0.9% 100 ML IVPB SCH (22:00)
[2023-04-29] MEDS: HumaLOG 300 UNITS/3 ML VIAL SC PRN ×3 (01:17→22:09)
[2023-04-29] MEDS: Levothyroxine Sodium 75 MCG TAB PO SCH (06:36)
[2023-04-29 09:24] LABS: #Eosinphils 0.3 thou/uL (0.0-0.7); #Monocytes 0.5 thou/uL (0.11-0.59); #Neutrophils 4.8 thou/uL (1.40-6.50); %Basophils 0.6 % (0.0-1.0); %Eosinophils 4.4 % (0.0-10.0); %Lymphocytes 16.8 % (21.0-51.0); %Monocytes 6.6 % (0.0-10.0); Hemoglobin 10.1 g/dL (12.0-16.0); Mean Corpuscular HGB CONC 33.3 g/dL (32.0-36.0); Mean Corpuscular Hemoglobin 31.2 pg (27.0-31.0); Mean Corpuscular Volume 93.5 fl (78.0-98.0); Mean Platelet Volume 10.3 fL (7.4-10.4); Platelet Count 166 10x3/uL (130-400); RBC Distribution Width 12.1 % (11.5-14.5); Red Blood Cell (RBC) Count 3.24 mill/uL (4.20-5.40); White Blood Cell (WBC) Count 6.8 10x3/uL (4.8-10.8)
[2023-04-29] MEDS ORDERED: Ondansetron ODT 4 MG TAB PO SCH (09:30)
[2023-04-29 09:46] LABS: Vancomycin, Random 10.8 ug/mL (See Comment)
[2023-04-29 09:52] LABS: ALT (SGPT) 10 U/L (8-55); AST (SGOT) 12 U/L (5-34); Albumin 3.2 g/dL (3.4-4.8); Alkaline Phosphatase 63 U/L (40-110); Anion Gap 13 mmol/L (10-20); BUN (Urea Nitrogen) 20 mg/dL (9.8-20.1); Bilirubin, Total 0.2 mg/dL (0.2-1.2); Calc. Creatinine Clearance 23 mL/min (70-130); Calcium 8.5 mg/dL (7.8-10.44); Carbon Dioxide 28 mmol/L (23-31); Chloride 105 mmol/L (98-107); Estimated GFR 17; Globulin 2.2 g/dL (2.4-3.5); Glucose 83 mg/dL (83-110); Potassium 3.5 mmol/L (3.5-5.1); Protein, Total 5.4 g/dL (5.8-8.1); Sodium 142 mmol/L (136-145)
[2023-04-29] MEDS ORDERED: Vancomycin Dialysis Sliding Scale (Wt > 99) FS SCH (10:30)
[2023-04-29] MEDS: Carvedilol 3.125 MG TAB PO SCH (10:53)
[2023-04-29] MEDS: Fluconazole 100 MG TAB PO SCH (10:53)
[2023-04-29] MEDS: guaiFENesin ER 600 MG TAB PO SCH ×2 (10:53→21:55)
[2023-04-29] MEDS: Benzonatate 100 MG CAP PO PRN (10:53)
[2023-04-29] MEDS: Acetaminophen 500 MG TAB PO SCH ×3 (10:53→22:05)
[2023-04-29] MEDS: Heparin 5,000 UNITS/ML VIAL SC SCH ×3 (10:54→21:56)
[2023-04-29] MEDS ORDERED: Vancomycin 1 GM in Premix Bag 1 BAG IVPB SCH (11:00)
[2023-04-29] MEDS: Insulin Glargine 30 UNITS/0.3 ML VIAL SC SCH ×2 (11:44→21:57)
[2023-04-29] MEDS ORDERED: HEPARIN FS SCH (17:15)
[2023-04-29] MEDS ORDERED: PERITONEAL DIALYSIS FS SCH (17:15)
[2023-04-29] MEDS ORDERED: DEX FS SCH (17:15)
[2023-04-29] MEDS: Ondansetron PF 4 MG/2 ML Vial IVP PRN (20:15)
[2023-04-29] MEDS ORDERED: Activase 2 MG VIAL CATH SCH (21:00)
[2023-04-29] MEDS ORDERED: Sterile Water 10 ML VIAL IVP SCH (21:00)
[2023-04-29] MEDS: Escitalopram Oxalate 10 mg Tablet PO SCH (21:55)
[2023-04-29] MEDS: Atorvastatin Calcium 10 MG TAB PO SCH (21:55)
[2023-04-29] MEDS: HumaLOG 300 UNITS/3 ML VIAL SC SCH (21:56)
[2023-04-29] MEDS: metroNIDAZOLE 500 MG in Premix Bag 1 BAG IVPB SCH (22:02)
[2023-04-29] MEDS: Cefepime 1 GM in Sodium Chloride 0.9% 100 ML IVPB SCH (22:06)
[2023-04-30 05:21] LABS: #Eosinphils 0.2 thou/uL (0.0-0.7); #Monocytes 0.5 thou/uL (0.11-0.59); %Basophils 0.6 % (0.0-1.0); %Eosinophils 3.9 % (0.0-10.0); %Monocytes 8.3 % (0.0-10.0); %Neutrophils 63.9 % (42.0-75.0); Mean Corpuscular HGB CONC 33.6 g/dL (32.0-36.0); Mean Corpuscular Volume 92.3 fl (78.0-98.0); Mean Platelet Volume 10.4 fL (7.4-10.4); Platelet Count 184 10x3/uL (130-400); Red Blood Cell (RBC) Count 3.23 mill/uL (4.20-5.40); White Blood Cell (WBC) Count 6.2 10x3/uL (4.8-10.8)
[2023-04-30 05:45] LABS: ALT (SGPT) 12 U/L (8-55); AST (SGOT) 19 U/L (5-34); Alkaline Phosphatase 55 U/L (40-110); Anion Gap 15 mmol/L (10-20); BUN (Urea Nitrogen) 22 mg/dL (9.8-20.1); Bilirubin, Total 0.2 mg/dL (0.2-1.2); Calc. Creatinine Clearance 23 mL/min (70-130); Calcium 8.5 mg/dL (7.8-10.44); Carbon Dioxide 25 mmol/L (23-31); Chloride 106 mmol/L (98-107); Estimated GFR 17; Globulin 2.5 g/dL (2.4-3.5); Glucose 89 mg/dL (83-110); Potassium 3.3 mmol/L (3.5-5.1); Protein, Total 5.5 g/dL (5.8-8.1); Sodium 143 mmol/L (136-145)
[2023-04-30] MEDS: Levothyroxine Sodium 75 MCG TAB PO SCH (06:52)
[2023-04-30] MEDS: metroNIDAZOLE 500 MG in Premix Bag 1 BAG IVPB SCH ×3 (06:52→21:08)
[2023-04-30] MEDS: guaiFENesin ER 600 MG TAB PO SCH ×2 (09:03→20:21)
[2023-04-30] MEDS: Acetaminophen 500 MG TAB PO SCH ×3 (09:03→20:26)
[2023-04-30] MEDS: Fluconazole 100 MG TAB PO SCH (09:03)
[2023-04-30] MEDS: Carvedilol 3.125 MG TAB PO SCH (09:03)
[2023-04-30] MEDS: Heparin 5,000 UNITS/ML VIAL SC SCH ×3 (09:04→20:25)
[2023-04-30] MEDS: Ondansetron PF 4 MG/2 ML Vial IVP PRN ×2 (09:11→15:50)
[2023-04-30] MEDS: Insulin Glargine 30 UNITS/0.3 ML VIAL SC SCH ×2 (10:38→21:07)
[2023-04-30] MEDS: HumaLOG 300 UNITS/3 ML VIAL SC PRN ×2 (13:29→17:25)
[2023-04-30] MEDS ORDERED: [UNRECOGNIZED DRUG - REMARK] IVPB PRN (19:36)
[2023-04-30] MEDS ORDERED: VANCOMYCIN 1.75 GM/500 ML BAG 1.75 GM in Premix Bag 1 BAG IVPB SCH (20:00)
[2023-04-30] MEDS: Atorvastatin Calcium 10 MG TAB PO SCH (20:20)
[2023-04-30] MEDS: Escitalopram Oxalate 10 mg Tablet PO SCH (20:21)
[2023-04-30] MEDS: HumaLOG 300 UNITS/3 ML VIAL SC SCH (21:13)
[2023-04-30] MEDS: Cefepime 1 GM in Sodium Chloride 0.9% 100 ML IVPB SCH (21:15)
[2023-05-01] MEDS: Ondansetron PF 4 MG/2 ML Vial IVP PRN ×3 (05:25→23:42)
[2023-05-01] MEDS: Levothyroxine Sodium 75 MCG TAB PO SCH (05:26)
[2023-05-01] MEDS: metroNIDAZOLE 500 MG in Premix Bag 1 BAG IVPB SCH ×3 (05:28→22:03)
[2023-05-01] MEDS: HumaLOG 300 UNITS/3 ML VIAL SC PRN ×3 (05:31→23:49)
[2023-05-01 07:30] LABS: #Eosinphils 0.1 thou/uL (0.0-0.7); #Monocytes 0.4 thou/uL (0.11-0.59); #Neutrophils 5.3 thou/uL (1.40-6.50); %Basophils 0.6 % (0.0-1.0); %Eosinophils 1.5 % (0.0-10.0); %Lymphocytes 12.9 % (21.0-51.0); %Monocytes 6.4 % (0.0-10.0); Hemoglobin 10.9 g/dL (12.0-16.0); Mean Corpuscular HGB CONC 32.2 g/dL (32.0-36.0); Mean Corpuscular Hemoglobin 30.9 pg (27.0-31.0); Mean Corpuscular Volume 95.8 fl (78.0-98.0); Mean Platelet Volume 10.1 fL (7.4-10.4); Platelet Count 192 10x3/uL (130-400); RBC Distribution Width 12.1 % (11.5-14.5); Red Blood Cell (RBC) Count 3.53 mill/uL (4.20-5.40); White Blood Cell (WBC) Count 6.8 10x3/uL (4.8-10.8)
[2023-05-01 07:53] LABS: ALT (SGPT) 24 U/L (8-55); AST (SGOT) 24 U/L (5-34); Albumin 3.5 g/dL (3.4-4.8); Alkaline Phosphatase 70 U/L (40-110); Anion Gap 17 mmol/L (10-20); BUN (Urea Nitrogen) 18 mg/dL (9.8-20.1); Bilirubin, Total 0.2 mg/dL (0.2-1.2); Calc. Creatinine Clearance 23 mL/min (70-130); Calcium 9.1 mg/dL (7.8-10.44); Carbon Dioxide 22 mmol/L (23-31); Chloride 108 mmol/L (98-107); Estimated GFR 17; Glucose 307 mg/dL (83-110); Potassium 2.9 mmol/L (3.5-5.1); Protein, Total 6.5 g/dL (5.8-8.1); Sodium 144 mmol/L (136-145)
[2023-05-01 07:55] LABS: Vancomycin, Random 38.1 ug/mL (See Comment)
[2023-05-01] MEDS: guaiFENesin ER 600 MG TAB PO SCH (09:21)
[2023-05-01] MEDS: Fluconazole 100 MG TAB PO SCH (09:21)
[2023-05-01] MEDS: Carvedilol 3.125 MG TAB PO SCH (09:21)
[2023-05-01] MEDS: Acetaminophen 500 MG TAB PO SCH ×2 (09:21→14:45)
[2023-05-01] MEDS: Heparin 5,000 UNITS/ML VIAL SC SCH ×3 (09:21→22:00)
[2023-05-01] MEDS: Insulin Glargine 30 UNITS/0.3 ML VIAL SC SCH ×2 (09:22→23:46)
[2023-05-01] MEDS ORDERED: Potassium Chloride 20 MEQ TAB PO SCH ×2 (11:45→16:00)
[2023-05-01] MEDS: Atorvastatin Calcium 10 MG TAB PO SCH (21:59)
[2023-05-01] MEDS: Escitalopram Oxalate 10 mg Tablet PO SCH (21:59)
[2023-05-01] MEDS: Cefepime 1 GM in Sodium Chloride 0.9% 100 ML IVPB SCH (22:01)
[2023-05-01] MEDS ORDERED: Melatonin 3 MG TAB PO PRN (22:35)
[2023-05-01] MEDS ORDERED: Melatonin 3 MG TAB PO SCH (22:45)
[2023-05-02] MEDS: Acetaminophen 500 MG TAB PO SCH ×5 (01:17→22:57)
[2023-05-02] MEDS: Ondansetron PF 4 MG/2 ML Vial IVP PRN ×3 (05:02→18:46)
[2023-05-02] MEDS: Levothyroxine Sodium 75 MCG TAB PO SCH (05:02)
[2023-05-02] MEDS: metroNIDAZOLE 500 MG in Premix Bag 1 BAG IVPB SCH (05:08)
[2023-05-02] MEDS: HumaLOG 300 UNITS/3 ML VIAL SC PRN (06:22)
[2023-05-02] MEDS: Doxycycline 100 MG CAP PO SCH ×2 (08:52→22:59)
[2023-05-02] MEDS: Carvedilol 3.125 MG TAB PO SCH (08:52)
[2023-05-02] MEDS: Heparin 5,000 UNITS/ML VIAL SC SCH ×3 (08:52→22:58)
[2023-05-02 10:40] LABS: Anion Gap 16 mmol/L (10-20); BUN (Urea Nitrogen) 16 mg/dL (9.8-20.1); Calc. Creatinine Clearance 23 mL/min (70-130); Calcium 8.8 mg/dL (7.8-10.44); Carbon Dioxide 23 mmol/L (23-31); Chloride 109 mmol/L (98-107); Estimated GFR 17; Glucose 226 mg/dL (83-110); Potassium 2.8 mmol/L (3.5-5.1); Sodium 145 mmol/L (136-145)
[2023-05-02] MEDS: Insulin Glargine 30 UNITS/0.3 ML VIAL SC SCH ×2 (11:09→22:58)
[2023-05-02] MEDS ORDERED: Potassium Chloride 20 MEQ TAB PO SCH (12:15)
[2023-05-02 13:44] LABS: Phosphorus 2.9 mg/dL (2.3-4.7)
[2023-05-02 13:45] LABS: Magnesium 1.2 mg/dL (1.6-2.6)
[2023-05-02] MEDS: Potassium Chloride 20 MEQ in Premix Bag 1 BAG IVPB SCH ×2 (15:49→20:00)
[2023-05-02] MEDS ORDERED: Loperamide HCl 2 MG CAP PO PRN (17:36)
[2023-05-02] MEDS: HumaLOG 300 UNITS/3 ML VIAL SC SCH (18:49)
[2023-05-02] MEDS ORDERED: Gentamicin TOPICAL Ointment 0.1% 15 gm Tube TOP SCH (20:45)
[2023-05-02] MEDS: Escitalopram Oxalate 10 mg Tablet PO SCH (22:59)
[2023-05-02] MEDS: Atorvastatin Calcium 10 MG TAB PO SCH (22:59)
[2023-05-02 23:01] LABS: Anion Gap 14 mmol/L (10-20); BUN (Urea Nitrogen) 16 mg/dL (9.8-20.1); Calc. Creatinine Clearance 23 mL/min (70-130); Calcium 8.6 mg/dL (7.8-10.44); Carbon Dioxide 24 mmol/L (23-31); Chloride 111 mmol/L (98-107); Estimated GFR 17; Glucose 87 mg/dL (83-110); Potassium 3.2 mmol/L (3.5-5.1); Sodium 146 mmol/L (136-145)
[2023-05-03] MEDS: Potassium Chloride 20 MEQ in Premix Bag 1 BAG IVPB SCH (03:35)
[2023-05-03] MEDS ORDERED: Potassium Chloride 20 MEQ TAB PO SCH ×2 (03:45→08:15)
[2023-05-03] MEDS: HumaLOG 300 UNITS/3 ML VIAL SC PRN (06:39)
[2023-05-03] MEDS: Levothyroxine Sodium 75 MCG TAB PO SCH (06:41)
[2023-05-03] MEDS: Ondansetron PF 4 MG/2 ML Vial IVP PRN (07:39)
[2023-05-03] MEDS: HumaLOG 300 UNITS/3 ML VIAL SC SCH ×2 (07:40→12:37)
[2023-05-03 07:55] LABS: Anion Gap 16 mmol/L (10-20); BUN (Urea Nitrogen) 15 mg/dL (9.8-20.1); Calc. Creatinine Clearance 22 mL/min (70-130); Calcium 8.8 mg/dL (7.8-10.44); Carbon Dioxide 26 mmol/L (23-31); Chloride 107 mmol/L (98-107); Estimated GFR 16; Glucose 177 mg/dL (83-110); Sodium 146 mmol/L (136-145)
[2023-05-03] MEDS ORDERED: Carvedilol 3.125 MG TAB PO SCH (09:00)
[2023-05-03] MEDS: Acetaminophen 500 MG TAB PO SCH ×2 (09:19→16:00)
[2023-05-03] MEDS: Heparin 5,000 UNITS/ML VIAL SC SCH ×2 (09:20→16:00)
[2023-05-03] MEDS: Doxycycline 100 MG CAP PO SCH (09:20)
[2023-05-03] MEDS: Insulin Glargine 30 UNITS/0.3 ML VIAL SC SCH (09:21)
[2023-05-03 11:52] LABS: Magnesium 1.2 mg/dL (1.6-2.6); Phosphorus 3.2 mg/dL (2.3-4.7)
[2023-05-03] MEDS ORDERED: Magnesium Oxide 400 MG TAB PO SCH ×2 (12:00→21:00)
[2023-05-03 15:04] VITALS: TEMP 98.1
[2023-05-03 16:12] VITALS: BP 118/61
== END 2023-05-03 16:08 | disposition home or self-care (01) | DRG 919 ==
LOC: ERS 15:15 → T4-B 18:02
PROVIDERS: ADMIT Student in an Organized Health Care Education/Training Program; ATTEND Student in an Organized Health Care Education/Training Program
PROC: 3E1M39Z Irrigation of Peritoneal Cavity using Dialysate, Percutaneous Approach (ICD-10-PCS; principal; 2023-04-29)
DX: T85.71XA Infection and inflammatory reaction due to peritoneal dialysis catheter, initial encounter (principal); A41.89 Other specified sepsis; N18.6 End stage renal disease; K65.2 Spontaneous bacterial peritonitis; R65.20 Severe sepsis without septic shock; J96.01 Acute respiratory failure with hypoxia; I12.0 Hypertensive chronic kidney disease with stage 5 chronic kidney disease or end stage renal disease; N39.0 Urinary tract infection, site not specified; D63.1 Anemia in chronic kidney disease; E86.0 Dehydration; E10.22 Type 1 diabetes mellitus with diabetic chronic kidney disease; F41.9 Anxiety disorder, unspecified; E03.9 Hypothyroidism, unspecified; F32.A Depression, unspecified; E10.65 Type 1 diabetes mellitus with hyperglycemia; E78.5 Hyperlipidemia, unspecified; E78.1 Pure hyperglyceridemia; Y84.6 Urinary catheterization as the cause of abnormal reaction of the patient, or of later complication, without mention of misadventure at the time of the procedure; Z99.2 Dependence on renal dialysis; Z79.4 Long term (current) use of insulin; Z90.49 Acquired absence of other specified parts of digestive tract; Z88.1 Allergy status to other antibiotic agents; Z88.8 Allergy status to other drugs, medicaments and biological substances; Z79.890 Hormone replacement therapy; E87.6 Hypokalemia; Z20.822 Contact with and (suspected) exposure to COVID-19
CPT/HCPCS: 36415; 36416; 71045; 74019; 74177; 80048; 80053; 80202; 81001; 83605; 83615; 83735; 84100; 84145; 84157; 84484; 85025; 85060; 85610; 85730; 87040; 87070; 87077; 87081; 87086; 87186; 87205; 87633; 89051; 90945; 93005; 93010; 94760; 96361; 96365; 96367; 96368; 96375; G0257; J0692; J1644; J1815; J1956; J2405; J2997; J3010; J3370; J3370-JW; J3480; J3490; J7050; J7120; Q0162; Q9967

== ENCOUNTER 2023-12-05 06:35 | Inpatient (IN) | payer MEDICARE, BC ==
[2023-12-05 07:22] LABS: #Basophils 0.1 thou/uL (0.0-0.2); #Eosinphils 0.1 thou/uL (0.0-0.7); #Monocytes 0.8 thou/uL (0.11-0.59); #Neutrophils 9.4 thou/uL (1.40-6.50); %Basophils 0.5 % (0.0-1.0); %Eosinophils 0.8 % (0.0-10.0); %Lymphocytes 6.9 % (21.0-51.0); %Monocytes 6.9 % (0.0-10.0); %Neutrophils 84.6 % (42.0-75.0); Hematocrit 35.2 % (36.0-47.0); Mean Corpuscular HGB CONC 34.1 g/dL (32.0-36.0); Mean Corpuscular Hemoglobin 31.7 pg (27.0-31.0); Mean Corpuscular Volume 93.1 fl (78.0-98.0); Mean Platelet Volume 9.8 fL (7.4-10.4); Platelet Count 206 10x3/uL (130-400); RBC Distribution Width 12.7 % (11.5-14.5); Red Blood Cell (RBC) Count 3.78 mill/uL (4.20-5.40)
[2023-12-05 07:50] LABS: ALT (SGPT) 20 U/L (8-55); AST (SGOT) 20 U/L (5-34); Alkaline Phosphatase 79 U/L (40-110); Anion Gap 15 mmol/L (10-20); BUN (Urea Nitrogen) 36 mg/dL (9.8-20.1); Bilirubin, Total 0.5 mg/dL (0.2-1.2); Calc. Creatinine Clearance 0 mL/min (70-130); Calcium 8.6 mg/dL (7.8-10.44); Carbon Dioxide 25 mmol/L (23-31); Chloride 101 mmol/L (98-107); Estimated GFR 16; Globulin 2.9 g/dL (2.4-3.5); Glucose 271 mg/dL (83-110); Potassium 3.5 mmol/L (3.5-5.1); Protein, Total 6.9 g/dL (5.8-8.1); Sodium 137 mmol/L (136-145)
[2023-12-05] MEDS ORDERED: Acetaminophen 500 MG TAB ONE (08:10)
[2023-12-05] MEDS ORDERED: Sodium Chloride 0.9% 100 ML ONE (08:10)
[2023-12-05] MEDS ORDERED: Cefepime 2 GM VIAL ONE (08:10)
[2023-12-05 08:44] LABS: Influenza A by NAA Not Detected (NotDetected); Influenza B by NAA Not Detected (NotDetected); SARS-CoV-2 NAA Rapid Test Not Detected (NotDetected)
[2023-12-05] MEDS ORDERED: Dextrose 5% in Water 1,000 ML IV PRN (08:54)
[2023-12-05] MEDS ORDERED: Dextrose 50% Abboject 50 ML SYRINGE SLOW IVP PRN (08:54)
[2023-12-05] MEDS ORDERED: Glucagon 1 MG/ML KIT IM PRN (08:54)
[2023-12-05] MEDS ORDERED: Vancomycin 1 GM in Premix 1 BAG IVPB SCH (09:00)
[2023-12-05] MEDS ORDERED: VANCOMYCIN IVPB PRN (09:03)
[2023-12-05] MEDS ORDERED: [UNRECOGNIZED DRUG - OTHER] FS SCH (09:15)
[2023-12-05] MEDS ORDERED: Morphine 2 MG/ML VIAL ONE (09:30)
[2023-12-05] MEDS ORDERED: Heparin 5,000 UNITS/ML VIAL ONE ×2 (09:30→16:21)
[2023-12-05] MEDS ORDERED: Ondansetron PF 4 MG/2 ML Vial ONE ×2 (09:37→16:21)
[2023-12-05] MEDS: Morphine 4 MG/ML VIAL SLOW IVP PRN (09:43)
[2023-12-05] MEDS: Heparin 5,000 UNITS/ML VIAL SC SCH (09:44)
[2023-12-05] MEDS: Ondansetron PF 4 MG/2 ML Vial IVP PRN (09:44)
[2023-12-05] MEDS: Meropenem 1 GM in Sodium Chloride 0.9% 100 ML IVPB SCH (10:18)
[2023-12-05] MEDS: Vancomycin (BATCH) 1.75 GM in Premix 1 BAG IVPB SCH (10:56)
[2023-12-05 14:22] LABS: RBC Count-Automated (BF) 3066 /cu.mm; WBC/Nucleated-Auto (BF) 6893 /cu.mm
[2023-12-05 15:30] LABS: Body Fluid Source Ascites Body Fluid
[2023-12-05 15:31] LABS: BF Color Colorless; Clarity Cloudy/Turbid (Clear); Tube # EDTA
[2023-12-05 15:32] LABS: BF Segmented Neutrophils 60 %; Cell Count Non Hematic 38 %; Lymphocytes 2 %
[2023-12-05] MEDS ORDERED: Morphine 4 MG/ML VIAL ONE (16:21)
[2023-12-05 18:24] VITALS: BMI 36.6
[2023-12-05] MEDS: Famotidine 20 MG TAB PO SCH (21:02)
[2023-12-05] MEDS: Gabapentin 300 MG CAP PO SCH (22:38)
[2023-12-06] MEDS: HumaLOG 300 UNITS/3 ML VIAL SC PRN (06:11)
[2023-12-06 06:41] LABS: Anion Gap 12 mmol/L (10-20); BUN (Urea Nitrogen) 36 mg/dL (9.8-20.1); Calc. Creatinine Clearance 22 mL/min (70-130); Carbon Dioxide 25 mmol/L (23-31); Chloride 102 mmol/L (98-107); Estimated GFR 15; Potassium 3.7 mmol/L (3.5-5.1); Sodium 135 mmol/L (136-145)
[2023-12-06 07:14] LABS: Critical Call Chemistry NUR.LLA1@0713; Glucose 414 mg/dL (83-110)
[2023-12-06 07:19] LABS: #Eosinphils 0.2 thou/uL (0.0-0.7); #Monocytes 0.4 thou/uL (0.11-0.59); #Neutrophils 4.2 thou/uL (1.40-6.50); %Basophils 0.7 % (0.0-1.0); %Eosinophils 3.4 % (0.0-10.0); %Lymphocytes 17.3 % (21.0-51.0); %Monocytes 6.9 % (0.0-10.0); Hemoglobin 10.3 g/dL (12.0-16.0); Mean Corpuscular HGB CONC 33.2 g/dL (32.0-36.0); Mean Corpuscular Hemoglobin 31.1 pg (27.0-31.0); Mean Corpuscular Volume 93.7 fl (78.0-98.0); Mean Platelet Volume 10.3 fL (7.4-10.4); Platelet Count 160 10x3/uL (130-400); RBC Distribution Width 12.7 % (11.5-14.5); Red Blood Cell (RBC) Count 3.31 mill/uL (4.20-5.40); White Blood Cell (WBC) Count 5.9 10x3/uL (4.8-10.8)
[2023-12-06] MEDS: Meropenem 500 MG in Sodium Chloride 0.9% 100 ML IVPB SCH (09:33)
[2023-12-06] MEDS: Micafungin 100 MG in Sodium Chloride 0.9% 100 ML IVPB SCH (17:49)
[2023-12-06] MEDS: Carvedilol 3.125 MG TAB PO SCH (22:24)
[2023-12-06] MEDS: Insulin Glargine 30 UNITS/0.3 ML VIAL SC SCH (22:25)
[2023-12-06] MEDS: Gabapentin 300 MG CAP PO SCH (22:25)
[2023-12-06] MEDS: Acetaminophen 325 MG TAB PO PRN (22:26)
[2023-12-07 05:12] LABS: #Eosinphils 0.3 thou/uL (0.0-0.7); #Monocytes 0.5 thou/uL (0.11-0.59); #Neutrophils 3.9 thou/uL (1.40-6.50); %Basophils 0.6 % (0.0-1.0); %Eosinophils 4.7 % (0.0-10.0); %Lymphocytes 25.4 % (21.0-51.0); %Monocytes 7.4 % (0.0-10.0); %Neutrophils 61.4 % (42.0-75.0); Hematocrit 29.7 % (36.0-47.0); Hemoglobin 10.1 g/dL (12.0-16.0); Mean Corpuscular Hemoglobin 31.8 pg (27.0-31.0); Mean Corpuscular Volume 93.4 fl (78.0-98.0); Mean Platelet Volume 10.6 fL (7.4-10.4); Platelet Count 159 10x3/uL (130-400); RBC Distribution Width 12.7 % (11.5-14.5); Red Blood Cell (RBC) Count 3.18 mill/uL (4.20-5.40); White Blood Cell (WBC) Count 6.4 10x3/uL (4.8-10.8)
[2023-12-07 05:52] LABS: Anion Gap 16 mmol/L (10-20); BUN (Urea Nitrogen) 31 mg/dL (9.8-20.1); Calc. Creatinine Clearance 21 mL/min (70-130); Calcium 8.1 mg/dL (7.8-10.44); Carbon Dioxide 24 mmol/L (23-31); Chloride 100 mmol/L (98-107); Estimated GFR 14; Glucose 287 mg/dL (83-110); Potassium 3.8 mmol/L (3.5-5.1); Sodium 136 mmol/L (136-145)
[2023-12-07] MEDS: Levothyroxine Sodium 100 MCG TAB PO SCH (06:05)
[2023-12-07 09:16] LABS: Vancomycin, Random 12.5 ug/mL (See Comment)
[2023-12-07] MEDS: Vancomycin HCl 750 MG in Sodium Chloride 0.9% 250 ML 250 ML IVPB SCH (10:44)
[2023-12-07] MEDS: Rosuvastatin 10 MG TAB PO SCH (10:46)
[2023-12-07] MEDS ORDERED: Acetaminophen 500 MG TAB PO PRN (15:11)
[2023-12-07] MEDS ORDERED: Bupivacaine 0.25% HCL 30 ML VIAL ONE (16:05)
[2023-12-07] MEDS ORDERED: EPINEPHrine 1 MG/ML VIAL ONE (16:05)
[2023-12-07] MEDS ORDERED: Bupivacaine PF 0.5% 30 ML VIAL ONE (16:06)
[2023-12-07] MEDS ORDERED: Lidocaine 2% PF 5 ML VIAL ONE (16:12)
[2023-12-07] MEDS ORDERED: PROPOFOL 20 ML ONE (16:26)
[2023-12-07] MEDS ORDERED: Lidocaine 1% PF 5 ML VIAL ONE (16:26)
[2023-12-08 04:34] LABS: #Eosinphils 0.3 thou/uL (0.0-0.7); #Monocytes 0.5 thou/uL (0.11-0.59); #Neutrophils 5.3 thou/uL (1.40-6.50); %Basophils 0.5 % (0.0-1.0); %Eosinophils 3.6 % (0.0-10.0); %Lymphocytes 18.1 % (21.0-51.0); %Monocytes 6.3 % (0.0-10.0); Hematocrit 30.2 % (36.0-47.0); Hemoglobin 9.8 g/dL (12.0-16.0); Mean Corpuscular HGB CONC 32.5 g/dL (32.0-36.0); Mean Corpuscular Hemoglobin 30.8 pg (27.0-31.0); Mean Platelet Volume 10.2 fL (7.4-10.4); Platelet Count 166 10x3/uL (130-400); RBC Distribution Width 12.5 % (11.5-14.5); Red Blood Cell (RBC) Count 3.18 mill/uL (4.20-5.40); White Blood Cell (WBC) Count 7.4 10x3/uL (4.8-10.8)
[2023-12-08 04:45] LABS: Prothrombin Time 13.3 sec (12.0-14.7)
[2023-12-08 04:59] LABS: Anion Gap 11 mmol/L (10-20); BUN (Urea Nitrogen) 27 mg/dL (9.8-20.1); Calc. Creatinine Clearance 24 mL/min (70-130); Calcium 8.2 mg/dL (7.8-10.44); Carbon Dioxide 28 mmol/L (23-31); Chloride 104 mmol/L (98-107); Estimated GFR 17; Glucose 141 mg/dL (83-110); Potassium 3.6 mmol/L (3.5-5.1); Sodium 139 mmol/L (136-145)
[2023-12-08 11:07] LABS: HBCM Index 0.13 S/CO (0-0.79); Hep A IgM AB Non-Reactive S/CO (NonReactive); Hep A IgM S/CO 0.14 S/CO (0-0.79); Hep B Surf Ag Non-Reactive S/CO (NonReactive); Hepatitis B Core IgM Abs Non-Reactive S/CO (NonReactive)
[2023-12-08 11:09] LABS: Hep C IgG Ab Reflex HepC Qnt S/CO (NonReactive); Hep C Index 14.74 S/CO (0-0.79)
[2023-12-08] MEDS ORDERED: Polyethylene Glycol 3350 17 GM Packet PO PRN (12:33)
[2023-12-08] MEDS: Senokot S 8.6-50 MG TAB PO SCH (20:32)
[2023-12-09 04:37] LABS: #Eosinphils 0.3 thou/uL (0.0-0.7); #Monocytes 0.5 thou/uL (0.11-0.59); #Neutrophils 4.4 thou/uL (1.40-6.50); %Basophils 0.3 % (0.0-1.0); %Eosinophils 3.8 % (0.0-10.0); %Lymphocytes 20.2 % (21.0-51.0); %Neutrophils 67.4 % (42.0-75.0); Hemoglobin 9.3 g/dL (12.0-16.0); Mean Corpuscular HGB CONC 33.2 g/dL (32.0-36.0); Mean Corpuscular Hemoglobin 31.6 pg (27.0-31.0); Mean Corpuscular Volume 95.2 fl (78.0-98.0); Mean Platelet Volume 10.4 fL (7.4-10.4); Platelet Count 165 10x3/uL (130-400); RBC Distribution Width 12.7 % (11.5-14.5); Red Blood Cell (RBC) Count 2.94 mill/uL (4.20-5.40); White Blood Cell (WBC) Count 6.5 10x3/uL (4.8-10.8)
[2023-12-09 05:07] LABS: Anion Gap 11 mmol/L (10-20); BUN (Urea Nitrogen) 28 mg/dL (9.8-20.1); Calc. Creatinine Clearance 23 mL/min (70-130); Calcium 8.4 mg/dL (7.8-10.44); Carbon Dioxide 27 mmol/L (23-31); Chloride 106 mmol/L (98-107); Estimated GFR 16; Glucose 147 mg/dL (83-110); Potassium 3.7 mmol/L (3.5-5.1); Sodium 140 mmol/L (136-145)
[2023-12-09] MEDS: Senokot S 8.6-50 MG TAB PO SCH (10:20)
[2023-12-09] MEDS ORDERED: Heparin 10,000 UNITS/ 10 ML VIAL ONE (12:09)
[2023-12-09 13:09] LABS: Reference Lab Name LABCORP
[2023-12-09] MEDS: EPOETIN ALFA-EPBX (ESRD) 10,000 UNITS/ML VIAL SC SCH (22:36)
[2023-12-10 05:49] LABS: #Eosinphils 0.3 thou/uL (0.0-0.7); #Monocytes 0.8 thou/uL (0.11-0.59); #Neutrophils 5.5 thou/uL (1.40-6.50); %Basophils 0.5 % (0.0-1.0); %Eosinophils 3.1 % (0.0-10.0); %Lymphocytes 21.1 % (21.0-51.0); %Monocytes 9.5 % (0.0-10.0); %Neutrophils 65.4 % (42.0-75.0); Hemoglobin 9.8 g/dL (12.0-16.0); Mean Corpuscular HGB CONC 32.7 g/dL (32.0-36.0); Mean Corpuscular Hemoglobin 30.9 pg (27.0-31.0); Mean Corpuscular Volume 94.6 fl (78.0-98.0); Mean Platelet Volume 10.3 fL (7.4-10.4); Platelet Count 187 10x3/uL (130-400); RBC Distribution Width 12.4 % (11.5-14.5); Red Blood Cell (RBC) Count 3.17 mill/uL (4.20-5.40); White Blood Cell (WBC) Count 8.4 10x3/uL (4.8-10.8)
[2023-12-10 06:17] LABS: Anion Gap 13 mmol/L (10-20); BUN (Urea Nitrogen) 19 mg/dL (9.8-20.1); Calc. Creatinine Clearance 26 mL/min (70-130); Calcium 8.8 mg/dL (7.8-10.44); Carbon Dioxide 29 mmol/L (23-31); Chloride 101 mmol/L (98-107); Estimated GFR 18; Glucose 181 mg/dL (83-110); Potassium 3.7 mmol/L (3.5-5.1); Sodium 139 mmol/L (136-145)
[2023-12-10 18:37] LABS: Hep C PCR-Quant HCV Not Detected IU/mL (.)
[2023-12-10] MEDS: Heparin 5,000 UNITS/ML VIAL SC SCH (19:57)
[2023-12-10] MEDS: Senokot S 8.6-50 MG TAB PO SCH (19:58)
[2023-12-11] MEDS ORDERED: Heparin 10,000 UNITS/ 10 ML VIAL ONE (09:47)
[2023-12-11] MEDS: EPOETIN ALFA-EPBX 10,000 UNITS/ML VIAL IVP SCH (17:29)
[2023-12-11 18:00] LABS: Anion Gap 14 mmol/L (10-20); BUN (Urea Nitrogen) 11 mg/dL (9.8-20.1); Calc. Creatinine Clearance 34 mL/min (70-130); Calcium 9.4 mg/dL (7.8-10.44); Carbon Dioxide 27 mmol/L (23-31); Chloride 97 mmol/L (98-107); Estimated GFR 26; Glucose 144 mg/dL (83-110); Potassium 3.3 mmol/L (3.5-5.1); Sodium 135 mmol/L (136-145)
[2023-12-11] MEDS: HYDROcodone/Acetaminophen 5/325 mg Tablet PO SCH (22:54)
[2023-12-11] MEDS: Lidocaine 4% Patch TD SCH (22:55)
[2023-12-12 04:56] LABS: #Basophils 0.1 thou/uL (0.0-0.2); #Eosinphils 0.3 thou/uL (0.0-0.7); #Monocytes 0.6 thou/uL (0.11-0.59); #Neutrophils 6.7 thou/uL (1.40-6.50); %Basophils 0.6 % (0.0-1.0); %Eosinophils 2.8 % (0.0-10.0); %Monocytes 6.5 % (0.0-10.0); %Neutrophils 71.2 % (42.0-75.0); Hematocrit 35.6 % (36.0-47.0); Hemoglobin 11.6 g/dL (12.0-16.0); Mean Corpuscular HGB CONC 32.6 g/dL (32.0-36.0); Mean Corpuscular Hemoglobin 30.7 pg (27.0-31.0); Mean Corpuscular Volume 94.2 fl (78.0-98.0); Mean Platelet Volume 10.4 fL (7.4-10.4); Platelet Count 243 10x3/uL (130-400); RBC Distribution Width 12.7 % (11.5-14.5); Red Blood Cell (RBC) Count 3.78 mill/uL (4.20-5.40); White Blood Cell (WBC) Count 9.4 10x3/uL (4.8-10.8)
[2023-12-12 05:17] LABS: Anion Gap 15 mmol/L (10-20); BUN (Urea Nitrogen) 20 mg/dL (9.8-20.1); Calc. Creatinine Clearance 20 mL/min (70-130); Calcium 9.1 mg/dL (7.8-10.44); Carbon Dioxide 29 mmol/L (23-31); Chloride 97 mmol/L (98-107); Estimated GFR 13; Glucose 314 mg/dL (83-110); Potassium 3.4 mmol/L (3.5-5.1); Sodium 138 mmol/L (136-145)
[2023-12-12] MEDS: Transdermal Patch Removal TOP SCH (10:30)
[2023-12-12] MEDS: HumaLOG 300 UNITS/3 ML VIAL SC PRN (12:47)
[2023-12-12] MEDS: Fluconazole 100 MG TAB PO SCH (16:11)
[2023-12-12] MEDS: Lidocaine 4% Patch TD SCH (21:30)
[2023-12-13 05:14] LABS: Anion Gap 11 mmol/L (10-20); BUN (Urea Nitrogen) 34 mg/dL (9.8-20.1); Calc. Creatinine Clearance 13 mL/min (70-130); Carbon Dioxide 33 mmol/L (23-31); Chloride 97 mmol/L (98-107); Estimated GFR 8; Glucose 243 mg/dL (83-110); Potassium 3.3 mmol/L (3.5-5.1); Sodium 138 mmol/L (136-145)
[2023-12-13] MEDS ORDERED: Tuberculin PPD 0.1 ML VIAL I-DERMAL SCH (11:15)
[2023-12-13 12:36] LABS: HBSAg Index 0.21 S/CO (0-0.99); Hep B Core Total Ab Non-Reactive (NonReactive); Hep B Core Total Index 0.14 S/CO (0-0.79); Hep B Surf Ag Non-Reactive S/CO (NonReactive)
[2023-12-13 12:40] LABS: HBSAB Concentration 79.47 mIU/mL; Hep B Surf AB Reactive (NonReactive); Hep C IgG Ab Reflex HepC Qnt S/CO (NonReactive); Hep C Index 14.03 S/CO (0-0.79)
[2023-12-13] MEDS: Fluconazole 100 MG TAB PO SCH (17:37)
[2023-12-15 04:43] LABS: Anion Gap 15 mmol/L (10-20); BUN (Urea Nitrogen) 41 mg/dL (9.8-20.1); Calc. Creatinine Clearance 12 mL/min (70-130); Calcium 8.9 mg/dL (7.8-10.44); Carbon Dioxide 27 mmol/L (23-31); Chloride 95 mmol/L (98-107); Estimated GFR 8; Glucose 341 mg/dL (83-110); Potassium 3.6 mmol/L (3.5-5.1); Sodium 133 mmol/L (136-145)
[2023-12-15 12:58] VITALS: BP 106/63; TEMP 98.4
[2023-12-16] MEDS ORDERED: READ PPD TEST SITE PO SCH (09:00)
== END 2023-12-15 16:13 | disposition home or self-care (01) | DRG 919 ==
LOC: ERS 06:35 → ERHOLD 08:30 → 2NO 18:17 → SURG B 12-09 10:27
PROVIDERS: ADMIT Internal Medicine; ATTEND Hospitalist
PROC: 3E03329 Introduction of Other Anti-infective into Peripheral Vein, Percutaneous Approach (ICD-10-PCS; 2023-12-05)
PROC: 0WPGX3Z Removal of Infusion Device from Peritoneal Cavity, External Approach (ICD-10-PCS; principal; 2023-12-07)
PROC: 3E033XZ Introduction of Vasopressor into Peripheral Vein, Percutaneous Approach (ICD-10-PCS; 2023-12-07)
DX: T85.71XA Infection and inflammatory reaction due to peritoneal dialysis catheter, initial encounter (principal); A41.9 Sepsis, unspecified organism; K65.9 Peritonitis, unspecified; N18.6 End stage renal disease; I12.0 Hypertensive chronic kidney disease with stage 5 chronic kidney disease or end stage renal disease; Z79.4 Long term (current) use of insulin; Z79.899 Other long term (current) drug therapy; E78.5 Hyperlipidemia, unspecified; Z98.890 Other specified postprocedural states; Z90.710 Acquired absence of both cervix and uterus; Z90.49 Acquired absence of other specified parts of digestive tract; E10.22 Type 1 diabetes mellitus with diabetic chronic kidney disease; Z88.8 Allergy status to other drugs, medicaments and biological substances; Z88.1 Allergy status to other antibiotic agents; Z11.52 Encounter for screening for COVID-19; D63.1 Anemia in chronic kidney disease; E03.9 Hypothyroidism, unspecified; B19.20 Unspecified viral hepatitis C without hepatic coma
CPT/HCPCS: 36415; 36416; 71046; 80048; 80053; 80074; 80202; 85025; 85060; 85610; 86704; 87040; 87070; 87205; 87522; 89051; 90935; 90945; 96374; 97139; G0257; J0171; J0665; J0692; J1644; J1815; J2001; J2185; J2248; J2270; J2272; J2405; J2704; J3370; J3490; J7050; Q5105; Q5106

== ENCOUNTER 2023-12-29 14:02 | Emergency (ER) | payer MEDICARE, BC ==
[2023-12-29 14:29] LABS: #Monocytes 0.4 thou/uL (0.11-0.59); #Neutrophils 4.2 thou/uL (1.40-6.50); %Basophils 0.3 % (0.0-1.0); %Eosinophils 0.3 % (0.0-10.0); %Lymphocytes 19.1 % (21.0-51.0); %Monocytes 7.4 % (0.0-10.0); %Neutrophils 72.7 % (42.0-75.0); Hematocrit 28.1 % (36.0-47.0); Hemoglobin 9.5 g/dL (12.0-16.0); Mean Corpuscular HGB CONC 33.8 g/dL (32.0-36.0); Mean Corpuscular Hemoglobin 31.4 pg (27.0-31.0); Mean Corpuscular Volume 92.7 fl (78.0-98.0); Mean Platelet Volume 10.4 fL (7.4-10.4); Platelet Count 198 10x3/uL (130-400); RBC Distribution Width 12.7 % (11.5-14.5); Red Blood Cell (RBC) Count 3.03 mill/uL (4.20-5.40); White Blood Cell (WBC) Count 5.8 10x3/uL (4.8-10.8)
[2023-12-29 14:55] LABS: ALT (SGPT) 19 U/L (8-55); AST (SGOT) 21 U/L (5-34); Albumin 4.3 g/dL (3.4-4.8); Alkaline Phosphatase 76 U/L (40-110); Anion Gap 18 mmol/L (10-20); BUN (Urea Nitrogen) 11 mg/dL (9.8-20.1); Bilirubin, Total 0.5 mg/dL (0.2-1.2); Calc. Creatinine Clearance 0 mL/min (70-130); Calcium 8.7 mg/dL (7.8-10.44); Carbon Dioxide 29 mmol/L (23-31); Chloride 96 mmol/L (98-107); Estimated GFR 24; Globulin 2.4 g/dL (2.4-3.5); Glucose 205 mg/dL (83-110); Lipase 48 U/L (8-78); Magnesium 1.8 mg/dL (1.6-2.6); Potassium 2.9 mmol/L (3.5-5.1); Protein, Total 6.7 g/dL (5.8-8.1); Sodium 140 mmol/L (136-145)
[2023-12-29] MEDS ORDERED: Promethazine 25 MG TAB ONE (15:12)
== END 2023-12-29 17:20 | disposition home or self-care (01) ==
LOC: ERS 14:02
DX: R53.1 Weakness (principal); R19.7 Diarrhea, unspecified; R11.2 Nausea with vomiting, unspecified; I12.0 Hypertensive chronic kidney disease with stage 5 chronic kidney disease or end stage renal disease; E10.22 Type 1 diabetes mellitus with diabetic chronic kidney disease; N18.6 End stage renal disease; E78.5 Hyperlipidemia, unspecified; Z99.2 Dependence on renal dialysis; Z79.899 Other long term (current) drug therapy
CPT/HCPCS: 71045; 80053; 83690; 83735; 83880; 84484; 85025; 93005; Q0169